=== PATIENT | female | born 1935 | race African-American/Black ===

== ENCOUNTER 2017-12-02 20:11 | Inpatient (IN) | payer MEDICARE ==
[~2017-12-02] VITALS: Ht 165.1 cm; Wt 62.5 kg
[2017-12-02] MEDS ORDERED: ALPRAZolam 0.5 MG TABLET PO ONE (21:00)
[2017-12-02] MEDS ORDERED: cloNIDine HCL 0.1 MG TABLET PO ONE (21:00)
--- NOTE | 2017-12-02 21:56 | RAD ---
CT scan of the head without contrast 12/02/2017 Clinical History: Altered mental status. Technique: Unenhanced, contiguous, 5 mm axial sections were obtained through the head. One or more of the following individualized dose reduction techniques were utilized for this study: 1. Automated exposure control. 2. Adjustment of the mA and/or kV according to patient size. 3. Use of iterative reconstruction technique. Findings: Comparison study is dated 03/08/2009. There is generalized parenchymal atrophy. Areas of decreased attenuation are seen within the periventricular and subcortical white matter of both cerebral hemispheres consistent with areas of small vessel ischemic disease. A low-attenuation area is seen involving the left parietal/occipital lobe which measures approximately 5.6 cm in greatest diameter. There is associated mass effect with effacement of the posterior horn of the left lateral ventricle. These findings are felt to reflect vasogenic edema related to an underlying mass (primary or secondary brain neoplasm) in this region. These findings are new since the previous examination. No midline shift is seen. No additional acute abnormality is noted. No extra-axial fluid collection is noted. No skull fracture is seen. IMPRESSION: Low-attenuation area with associated mass effect is seen involving the left parietal/occipital lobe. These findings efface the posterior horn of the left lateral ventricle and are felt to most likely reflect edema related to an underlying mass in this region. These findings could be further evaluated with MRI of the brain without and with contrast. Electronically signed by: Paul Caceres MD (12/02/2017 9:53 PM) [facility]
[2017-12-02 22:13] LABS: BILIRUBIN,URINE NEGATIVE (NEG); CLARITY,URINE CLEAR; COLOR,URINE YELLOW; NITRITE,URINE NEGATIVE (NEG); PH,URINE 5.5; PROTEIN,URINE NEGATIVE (NEG-TRACE); UROBILINOGEN,URINE 0.2 mg/dL (0.2 mg/dL)
[2017-12-02 22:24] LABS: BACTERIA,URINE 0 /HPF (0-FEW); RBC,URINE 0 /HPF (0-2); SQUAMOUS EPITHELIAL CELL,UR OCC /LPF; WBC,URINE 0 /HPF (0-4)
[2017-12-02 22:33] LABS: BASO # 0.1 x10^3/uL (0.0-0.2); BASO % 1 % (0-3); EOS % 0 % (0-3); HEMATOCRIT 22.8 % (36.0-47.0); HEMOGLOBIN 7.6 g/dL (12.0-15.5); LYMPH # 1.8 x10^3/uL (1.0-4.8); LYMPH % 16 % (24-48); MEAN CORPUSCULAR HEMOGLOBIN 30 pg (25-35); MEAN CORPUSCULAR HGB CONC 33 g/dL (31-37); MEAN CORPUSCULAR VOLUME 92 fL (79-100); MONO # 0.7 x10^3/uL (0.0-1.1); MONO % 6 % (0-9); NEUT # 8.5 x10^3uL (1.8-7.7); NEUT % 76 % (31-73); PLATELET COUNT 278 x10^3/uL (140-400); RED BLOOD COUNT 2.49 x10^6/uL (3.50-5.40); RED CELL DISTRIBUTION WIDTH 13.5 % (11.5-14.5); WHITE BLOOD COUNT 11.1 x10^3/uL (4.0-11.0)
[2017-12-02 22:37] LABS: PROTHROMBIN TIME PATIENT 14.7 SEC (11.7-14.0)
[2017-12-02 22:42] LABS: CALCIUM 9.1 mg/dL (8.5-10.1); CREATININE 3.6 mg/dL (0.6-1.0); GFR 14.6; POTASSIUM 4.3 mmol/L (3.5-5.1)
[2017-12-02 22:56] LABS: ALBUMIN 3.5 g/dL (3.4-5.0); TOTAL BILIRUBIN 0.3 mg/dL (0.2-1.0); TOTAL PROTEIN 7.1 g/dL (6.4-8.2)
[2017-12-02] MEDS ORDERED: IV NORMAL SALINE 1000ML BAG 1,000 ML IV ONE (23:00)
[2017-12-02] MEDS ORDERED: ONDANSETRON PF 4 MG/2 ML VIAL. IV PRN (23:15)
[2017-12-02] MEDS ORDERED: fentaNYL PF VIAL 100 MCG/2 ML VIAL IV PRN (23:15)
--- NOTE | 2017-12-02 23:49 | RAD ---
AP portable chest radiograph 12/02/2017 Clinical History: Altered mental status. An AP erect portable digital radiograph of the chest was obtained. Comparison study is dated 03/08/2009. The cardiac silhouette is mildly enlarged. The thoracic aorta is tortuous. Slight prominence of the pulmonary vasculature is seen suggesting mild CHF. No area of consolidation is noted. No pneumothorax or pleural effusion is seen. Degenerative changes are seen involving the thoracic spine. Impression: Findings suggesting mild CHF. Electronically signed by: Paul Caceres MD (12/02/2017 11:45 PM) [facility]
[2017-12-03] VITALS (21 sets, daily range): BP systolic 109–198; BP diastolic 61–113
--- NOTE | 2017-12-03 00:07 | EKG ---
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
--- NOTE | 2017-12-03 00:23 | PHYS DOC ---
Past Medical History Past Medical History: COPD, Hypertension, Other Additional Past Medical Histor: ALZHEIMER'S Past Surgical History: Hysterectomy Alcohol Use: None Drug Use: None Adult General Chief Complaint Chief Complaint: WEAKNESS/GENERALIZED HPI HPI Patient is a 82 year old female who presents with changes in behavior at home. The patient at baseline does have dementia but her family states that she has had increasingly bizarre behavior and altered mental status. They were worried that she might have a UTI. They did bring her to the emergency department and states that she has no significant past medical history aside from hypertension and dementia. She is eating and drinking normally and they deny nausea or vomiting. Review of Systems Review of Systems Constitutional: Denies fever or chills [] Eyes: Denies change in visual acuity, redness, or eye pain [] HENT: Denies nasal congestion or sore throat [] Respiratory: Denies cough or shortness of breath [] Cardiovascular: No additional information not addressed in HPI [] GI: Denies abdominal pain, nausea, vomiting, bloody stools or diarrhea [] : Denies dysuria or hematuria [] Musculoskeletal: Denies back pain or joint pain [] Integument: Denies rash or skin lesions [] Neurologic: See history of present illness Endocrine: Denies polyuria or polydipsia [] All other systems were reviewed and found to be within normal limits, except as documented in this note. Current Medications Current Medications Current Medications Medications (Trade) Dose Ordered Sig/[facility] Start Time Stop Time Status Last Admin Dose Admin Alprazolam (Xanax) 0.5 mg 1X ONCE 12/02/17 21:00 12/02/17 21:01 DC 12/02/17 21:07 0.5 MG Clonidine HCl (Catapres) 0.1 mg 1X ONCE 12/02/17 21:00 12/02/17 21:01 DC 12/02/17 21:07 0.1 MG Sodium Chloride 1,000 ml @ 1,000 mls/hr 1X ONCE 12/02/17 23:00 12/02/17 23:59 DC 12/02/17 23:31 1,000 MLS/HR Allergies Allergies Allergies Coded Allergies Type Severity Reaction Last Updated Verified No Known Drug Allergies 12/02/17 No Physical Exam Physical Exam Constitutional: Well developed, well nourished, no acute distress, non-toxic appearance. [] HENT: Normocephalic, atraumatic, bilateral external ears normal, oropharynx moist, no oral exudates, nose normal. [] Eyes: PERRLA, EOMI, conjunctiva normal, no discharge. [] Neck: Normal range of motion, no tenderness, supple, no stridor. [] Cardiovascular:Heart rate regular rhythm, 3+ systolic murmur auscultated Lungs & Thorax: Bilateral breath sounds clear to auscultation [] Abdomen: Bowel sounds normal, soft, no tenderness, no masses, no pulsatile masses. [] Skin: Warm, dry, no erythema, no rash. [] Back: No tenderness, no CVA tenderness. [] Extremities: No tenderness, no cyanosis, no clubbing, ROM intact, no edema. [] Neurologic: Alert, unable to examine due to condition of patient Psychologic: Affect normal, judgement normal, mood normal. [] Current Patient Data Vital Signs Vital Signs Date Time Temp Pulse Resp B/P (MAP) Pulse Ox O2 Delivery O2 Flow Rate FiO2 12/02/17 21:07 82 208/53 12/02/17 20:37 97.6 20 94 Room Air 97.6 Lab Values Laboratory Tests Test 12/02/17 20:49 12/02/17 21:55 12/02/17 22:15 Glucose (Fingerstick) 103 mg/dL (70-99) H Urine Collection Type Unknown Urine Color Yellow Urine Clarity Clear Urine pH 5.5 Urine Specific [place] 1.020 Urine Protein Negative mg/dL (NEG-TRACE) Urine Glucose (UA) Negative mg/dL (NEG) Urine Ketones (Stick) Negative mg/dL (NEG) Urine Blood Negative (NEG) Urine Nitrite Negative (NEG) Urine Bilirubin Negative (NEG) Urine Urobilinogen Dipstick 0.2 mg/dL (0.2 mg/dL) Urine Leukocyte Esterase Negative (NEG) Urine RBC 0 /HPF (0-2) Urine WBC 0 /HPF (0-4) Urine Squamous Epithelial Cells Occ /LPF Urine Bacteria 0 /HPF (0-FEW) Urine Mucus Slight /LPF White Blood Count 11.1 x10^3/uL (4.0-11.0) H Red Blood Count 2.49 x10^6/uL (3.50-5.40) L Hemoglobin 7.6 g/dL (12.0-15.5) L Hematocrit 22.8 % (36.0-47.0) L Mean Corpuscular Volume 92 fL (79-100) Mean Corpuscular Hemoglobin 30 pg (25-35) Mean Corpuscular Hemoglobin Concent 33 g/dL (31-37) Red Cell Distribution Width 13.5 % (11.5-14.5) Platelet Count 278 x10^3/uL (140-400) Neutrophils (%) (Auto) 76 % (31-73) H Lymphocytes (%) (Auto) 16 % (24-48) L Monocytes (%) (Auto) 6 % (0-9) Eosinophils (%) (Auto) 0 % (0-3) Basophils (%) (Auto) 1 % (0-3) Neutrophils # (Auto) 8.5 x10^3uL (1.8-7.7) H Lymphocytes # (Auto) 1.8 x10^3/uL (1.0-4.8) Monocytes # (Auto) 0.7 x10^3/uL (0.0-1.1) Eosinophils # (Auto) 0.0 x10^3/uL (0.0-0.7) Basophils # (Auto) 0.1 x10^3/uL (0.0-0.2) Prothrombin Time 14.7 SEC (11.7-14.0) H Prothrombin Time INR 1.2 (0.8-1.1) H PTT 32 SEC (24-38) Sodium Level 139 mmol/L (136-145) Potassium Level 4.3 mmol/L (3.5-5.1) Chloride Level 102 mmol/L (98-107) Carbon Dioxide Level 24 mmol/L (21-32) Anion Gap 13 (6-14) Blood Urea Nitrogen 64 mg/dL (7-20) H Creatinine 3.6 mg/dL (0.6-1.0) H Estimated GFR (Cockcroft-Gault) 14.6 BUN/Creatinine Ratio 18 (6-20) Glucose Level 97 mg/dL (70-99) Lactic Acid Level 0.6 mmol/L (0.4-2.0) Calcium Level 9.1 mg/dL (8.5-10.1) Total Bilirubin 0.3 mg/dL (0.2-1.0) Aspartate Amino Transferase (AST) 28 U/L (15-37) Alanine Aminotransferase (ALT) 20 U/L (14-59) Alkaline Phosphatase 65 U/L (46-116) Ammonia < 10 mcmol/L (11-34) L CK-Ngi-W-Type Natriuretic Peptide 1040 pg/mL (0-449) H Total Protein 7.1 g/dL (6.4-8.2) Albumin 3.5 g/dL (3.4-5.0) Albumin/Globulin Ratio 1.0 (1.0-1.7) Laboratory Tests 12/02/17 22:15 Laboratory Tests 12/02/17 22:15 EKG EKG [] Radiology/Procedures Radiology/Procedures []PATIENT: NESSA PADILLAACCOUNT: [id number]#: [id number] : 1935 LOCATION: [address] [place] [address] AGE: 82 SEX: F EXAM STATUS: ADM IN ORD. PHYSICIAN: AUGUSTA MACK APRN REASON: altered mental status PROCEDURE: CHEST AP ONLY AP portable chest radiograph 12/02/2017 Clinical History: Altered mental status. An AP erect portable digital radiograph of the chest was obtained. Comparison study is dated 03/08/2009. The cardiac silhouette is mildly enlarged. The thoracic aorta is tortuous. Slight prominence of the pulmonary vasculature is seen suggesting mild CHF. No area of consolidation is noted. No pneumothorax or pleural effusion is seen. Degenerative changes are seen involving the thoracic spine. Impression: Findings suggesting mild CHF. Electronically signed by: Neville Caceres MD (12/02/2017 11:45 PM) [facility] DICTATED and SIGNED BY: NEVILLE CACERES MD DATE: 12/02/17 2524 PATIENT: NESSA PADILLA ACCOUNT: [id number] : 1935 LOCATION: ER AGE: 82 SEX: F EXAM STATUS: REG ER ORD. PHYSICIAN: AUGUSTA MACK APRN REASON: altered mental status PROCEDURE: CT HEAD WO CONTRAST CT scan of the head without contrast 12/02/2017 Clinical History: Altered mental status. Technique: Unenhanced, contiguous, 5 mm axial sections were obtained through the head. One or more of the following individualized dose reduction techniques were utilized for this study: 1. Automated exposure control. 2. Adjustment of the mA and/or kV according to patient size. 3. Use of iterative reconstruction technique. Findings: Comparison study is dated 03/08/2009. There is generalized parenchymal atrophy. Areas of decreased attenuation are seen within the periventricular and subcortical white matter of both cerebral hemispheres consistent with areas of small vessel ischemic disease. A low-attenuation area is seen involving the left parietal/occipital lobe which measures approximately 5.6 cm in greatest diameter. There is associated mass effect with effacement of the posterior horn of the left lateral ventricle. These findings are felt to reflect vasogenic edema related to an underlying mass (primary or secondary brain neoplasm) in this region. These findings are new since the previous examination. No midline shift is seen. No additional acute abnormality is noted. No extra-axial fluid collection is noted. No skull fracture is seen. IMPRESSION: Low-attenuation area with associated mass effect is seen involving the left parietal/occipital lobe. These findings efface the posterior horn of the left lateral ventricle and are felt to most likely reflect edema related to an underlying mass in this region. These findings could be further evaluated with MRI of the brain without and with contrast. Electronically signed by: Neville Caceres MD (12/02/2017 9:53 PM) [facility] DICTATED and SIGNED BY: NEVILLE CACERES MD DATE: 12/02/172144 Course & Med Decision Making Course & Med Decision Making Pertinent Labs and Imaging studies reviewed. (See chart for details) []The patient has several concerning labs with an elevated creatinine and BNP. The patient also has concerns on her CT scan for a cranial mass. Dr. Amezquita was consulted in the care of this patient. The patient will be admitted to ICU and started on dexamethasone 4 mg every 6 hours. Cardiology and nephrology also had consults placed. The patient is being admitted to Dr. Elaine's service. Dragon Disclaimer Dragon Disclaimer This electronic medical record was generated, in whole or in part, using a voice recognition dictation system. Departure Departure Impression: Primary Impression: Renal failure Additional Impressions: Brain mass Anemia CHF (congestive heart failure) Disposition: ADMITTED INPATIENT Admitting Physician: Paulo Ramos Condition: GUARDED Referrals: MEME GARDINER MD (PCP) Problem Qualifiers AUGUSTA MACK STRAPPING MACHINE OPERATOR Dec 03, 2017 00:23
[2017-12-03] MEDS: DEXAMETHASONE SOD PHOS 4 MG/ML VIAL IV SCH ×4 (01:29→18:12)
[2017-12-03] MEDS: IV NORMAL SALINE 1000ML BAG 1,000 ML IV SCH ×2 (01:40→11:36)
[2017-12-03] MEDS ORDERED: QUET50TA5 PO (01:40)
[2017-12-03] MEDS ORDERED: LISI-130 PO (01:40)
[2017-12-03] MEDS ORDERED: MEMA10TA PO (01:40)
[2017-12-03] MEDS ORDERED: CLON0.1T PO (01:40)
[2017-12-03] MEDS ORDERED: MULT200T4 PO (01:40)
[2017-12-03] MEDS ORDERED: ASPI81TA50 PO (01:40)
[2017-12-03] MEDS ORDERED: ALPR0.5T6 PO (01:40)
[2017-12-03] MEDS ORDERED: DONE5TAB56 PO (01:40)
[2017-12-03] MEDS ORDERED: DOCU-109 PO (01:40)
[2017-12-03] MEDS ORDERED: ZOLP5TAB5 PO (01:40)
[2017-12-03] MEDS ORDERED: INFLUENZA VAX SCREEN BY RX. MC PRN (03:00)
[2017-12-03 05:57] LABS: BASO # 0.1 x10^3/uL (0.0-0.2); BASO % 1 % (0-3); EOS % 0 % (0-3); HEMATOCRIT 25.1 % (36.0-47.0); HEMOGLOBIN 8.5 g/dL (12.0-15.5); LYMPH # 1.6 x10^3/uL (1.0-4.8); LYMPH % 11 % (24-48); MEAN CORPUSCULAR HEMOGLOBIN 31 pg (25-35); MEAN CORPUSCULAR HGB CONC 34 g/dL (31-37); MEAN CORPUSCULAR VOLUME 92 fL (79-100); MONO # 0.2 x10^3/uL (0.0-1.1); MONO % 1 % (0-9); NEUT # 12.8 x10^3uL (1.8-7.7); NEUT % 87 % (31-73); PLATELET COUNT 325 x10^3/uL (140-400); RED BLOOD COUNT 2.74 x10^6/uL (3.50-5.40); RED CELL DISTRIBUTION WIDTH 13.7 % (11.5-14.5); WHITE BLOOD COUNT 14.7 x10^3/uL (4.0-11.0)
[2017-12-03 07:53] LABS: % BANDS 1 % (0-9); % LYMPHS 5 % (24-48); % MONOS 1 % (0-10); % SEGS 93 % (35-66); PLT ESTIMATE ADEQUATE (ADEQUATE)
[2017-12-03 08:41] LABS: MAGNESIUM 2.7 mg/dL (1.8-2.4)
[2017-12-03 08:44] LABS: CALCIUM 9.4 mg/dL (8.5-10.1); GFR 18.1; POTASSIUM 4.7 mmol/L (3.5-5.1)
[2017-12-03 08:47] LABS: CHOLESTEROL/HDL RATIO 2.8
[2017-12-03] MEDS ORDERED: traMADol 50 MG TABLET PO PRN (09:15)
[2017-12-03] MEDS ORDERED: DOCUSATE SODIUM 100 MG CAPSULE. PO PRN (09:15)
[2017-12-03] MEDS ORDERED: ONDANSETRON PF 4 MG/2 ML VIAL. IV PRN (09:15)
[2017-12-03] MEDS ORDERED: MORPHINE SULFATE 2 MG/ML VIAL. IV PRN (09:15)
[2017-12-03] MEDS ORDERED: ACETAMINOPHEN 325 MG TABLET. PO PRN (09:15)
[2017-12-03] MEDS ORDERED: cloNIDine HCL 0.1 MG TABLET PO SCH (10:00)
--- NOTE | 2017-12-03 10:01 | PDOC2 ---
CARDIAC CONSULT DATE OF CONSULT Date of Consult DATE: 12/03/17 TIME: 09:57 REASON FOR CONSULT Reason for Consult: CHF REFERRING PHYSICIAN Referring Physician: Daneint SOURCE Source: Caregiver, Chart review HISTORY OF PRESENT ILLNESS HISTORY OF PRESENT ILLNESS 82 year old female admitted through the ER with history of dementia and increasing mentation changes. Has been found to have left parietal /occipital mass. Cardiology consulted for NT-proBNP of 1040 with Cr of 3.6 and SBP of 208 POA. CXR suggestive of very mild CHF. Reason for Visit: CHF PAST MEDICAL HISTORY Cardiovascular: HTN Pulmonary: COPD CENTRAL NERVOUS SYSTEM: Dementia PAST SURGICAL HISTORY Past Surgical History: Hysterectomy FAMILY HISTORY Family History: Other (non-contributory) SOCIAL HISTORY Smoke: Quit ALCOHOL: other (quit) Drugs: None Lives: with Family CURRENT MEDICATIONS CURRENT MEDICATIONS Current Medications Medications (Trade) Dose Ordered Sig/Jake Route PRN Reason Start Time Stop Time Status Last Admin Dose Admin Alprazolam (Xanax) 0.5 mg 1X ONCE PO 12/02/17 21:00 12/02/17 21:01 DC 12/02/17 21:07 Clonidine HCl (Catapres) 0.1 mg 1X ONCE PO 12/02/17 21:00 12/02/17 21:01 DC 12/02/17 21:07 Sodium Chloride 1,000 ml @ 1,000 mls/hr 1X ONCE IV 12/02/17 23:00 12/02/17 23:59 DC 12/02/17 23:31 Sodium Chloride 1,000 ml @ 75 mls/hr [id number] IV 12/02/17 23:30 12/03/17 23:29 12/03/17 01:40 Dexamethasone Sodium Phosphate (Decadron) 4 mg Q6HRS IV 12/03/17 00:00 12/03/17 06:23 ALLERGIES ALLERGIES: Coded Allergies: No Known Drug Allergies (Unverified , 12/02/17) ROS Review of System unobtainable due to mentation changes and dementia PHYSICAL EXAM General: Cooperative, No acute distress HEENT: Atraumatic Lungs: Clear to auscultation Heart: Normal S1, Normal S2, Other (2-3/6 NAHUN LUSB) Abdomen: Soft Extremities: No edema Skin: No rashes Neuro: Normal speech Psych/Mental Status: Mood NL MUSCULOSKELETAL: Osteoarthritic changes both hands VITALS VITALS Vital Signs Date Time Temp Pulse Resp B/P (MAP) Pulse Ox O2 Delivery O2 Flow Rate FiO2 12/03/17 08:00 Room Air 12/03/17 06:00 86 14 138/91 (107) 100 12/03/17 01:30 97.6 97.6 LABS Lab: Laboratory Tests Test 12/02/17 20:49 12/02/17 21:55 12/02/17 22:15 12/03/17 05:35 Glucose (Fingerstick) 103 mg/dL (70-99) Urine Collection Type Unknown Urine Color Yellow Urine Clarity Clear Urine pH 5.5 Urine Specific [place] 1.020 Urine Protein Negative mg/dL (NEG-TRACE) Urine Glucose (UA) Negative mg/dL (NEG) Urine Ketones (Stick) Negative mg/dL (NEG) Urine Blood Negative (NEG) Urine Nitrite Negative (NEG) Urine Bilirubin Negative (NEG) Urine Urobilinogen Dipstick 0.2 mg/dL (0.2 mg/dL) Urine Leukocyte Esterase Negative (NEG) Urine RBC 0 /HPF (0-2) Urine WBC 0 /HPF (0-4) Urine Squamous Epithelial Cells Occ /LPF Urine Bacteria 0 /HPF (0-FEW) Urine Mucus Slight /LPF White Blood Count 11.1 x10^3/uL (4.0-11.0) 14.7 x10^3/uL (4.0-11.0) Red Blood Count 2.49 x10^6/uL (3.50-5.40) 2.74 x10^6/uL (3.50-5.40) Hemoglobin 7.6 g/dL (12.0-15.5) 8.5 g/dL (12.0-15.5) Hematocrit 22.8 % (36.0-47.0) 25.1 % (36.0-47.0) Mean Corpuscular Volume 92 fL (79-100) 92 fL (79-100) Mean Corpuscular Hemoglobin 30 pg (25-35) 31 pg (25-35) Mean Corpuscular Hemoglobin Concent 33 g/dL (31-37) 34 g/dL (31-37) Red Cell Distribution Width 13.5 % (11.5-14.5) 13.7 % (11.5-14.5) Platelet Count 278 x10^3/uL (140-400) 325 x10^3/uL (140-400) Neutrophils (%) (Auto) 76 % (31-73) 87 % (31-73) Lymphocytes (%) (Auto) 16 % (24-48) 11 % (24-48) Monocytes (%) (Auto) 6 % (0-9) 1 % (0-9) Eosinophils (%) (Auto) 0 % (0-3) 0 % (0-3) Basophils (%) (Auto) 1 % (0-3) 1 % (0-3) Neutrophils # (Auto) 8.5 x10^3uL (1.8-7.7) 12.8 x10^3uL (1.8-7.7) Lymphocytes # (Auto) 1.8 x10^3/uL (1.0-4.8) 1.6 x10^3/uL (1.0-4.8) Monocytes # (Auto) 0.7 x10^3/uL (0.0-1.1) 0.2 x10^3/uL (0.0-1.1) Eosinophils # (Auto) 0.0 x10^3/uL (0.0-0.7) 0.0 x10^3/uL (0.0-0.7) Basophils # (Auto) 0.1 x10^3/uL (0.0-0.2) 0.1 x10^3/uL (0.0-0.2) Prothrombin Time 14.7 SEC (11.7-14.0) Prothromb Time International Ratio 1.2 (0.8-1.1) Activated Partial Thromboplast Time 32 SEC (24-38) Sodium Level 139 mmol/L (136-145) Potassium Level 4.3 mmol/L (3.5-5.1) Chloride Level 102 mmol/L (98-107) Carbon Dioxide Level 24 mmol/L (21-32) Anion Gap 13 (6-14) Blood Urea Nitrogen 64 mg/dL (7-20) Creatinine 3.6 mg/dL (0.6-1.0) Estimated GFR (Cockcroft-Gault) 14.6 BUN/Creatinine Ratio 18 (6-20) Glucose Level 97 mg/dL (70-99) Lactic Acid Level 0.6 mmol/L (0.4-2.0) Calcium Level 9.1 mg/dL (8.5-10.1) Total Bilirubin 0.3 mg/dL (0.2-1.0) Aspartate Amino Transf (AST/SGOT) 28 U/L (15-37) Alanine Aminotransferase (ALT/SGPT) 20 U/L (14-59) Alkaline Phosphatase 65 U/L (46-116) Ammonia < 10 mcmol/L (11-34) PZ-Jpd-W-Type Natriuretic Peptide 1040 pg/mL (0-449) Total Protein 7.1 g/dL (6.4-8.2) Albumin 3.5 g/dL (3.4-5.0) Albumin/Globulin Ratio 1.0 (1.0-1.7) Segmented Neutrophils % 93 % (35-66) Band Neutrophils % 1 % (0-9) Lymphocytes % 5 % (24-48) Monocytes % 1 % (0-10) Platelet Estimate Adequate (ADEQUATE) Large Platelets Occ Test 12/03/17 08:00 Sodium Level 139 mmol/L (136-145) Potassium Level 4.7 mmol/L (3.5-5.1) Chloride Level 102 mmol/L (98-107) Carbon Dioxide Level 22 mmol/L (21-32) Anion Gap 15 (6-14) Blood Urea Nitrogen 54 mg/dL (7-20) Creatinine 3.0 mg/dL (0.6-1.0) Estimated GFR (Cockcroft-Gault) 18.1 Glucose Level 128 mg/dL (70-99) Calcium Level 9.4 mg/dL (8.5-10.1) Magnesium Level 2.7 mg/dL (1.8-2.4) Triglycerides Level 71 mg/dL (0-150) Cholesterol Level 231 mg/dL (0-200) LDL Cholesterol, Calculated 134 mg/dL (0-100) VLDL Cholesterol, Calculated 14 mg/dL (0-40) Non-HDL Cholesterol Calculated 148 mg/dL (0-129) HDL Cholesterol 83 mg/dL (40-60) Cholesterol/HDL Ratio 2.8 Thyroid Stimulating Hormone (TSH) 1.204 uIU/mL (0.358-3.74) IMAGES IMAGES CXR: Comparison study is dated 03/08/2009. The cardiac silhouette is mildly enlarged. The thoracic aorta is tortuous. Slight prominence of the pulmonary vasculature is seen suggesting mild CHF. No area of consolidation is noted. No pneumothorax or pleural effusion is seen. Degenerative changes are seen involving the thoracic spine. Impression: Findings suggesting mild CHF. EKG EKG SR; no acute changes ASSESSMENT/PLAN ASSESSMENT/PLAN 1. murmur --likely aortic --TTE pending for evaluation 2. CHF --BNP 1040 and not indicative of CHF in setting of Cr of 3.6; age adjusted requires value > 1800 --minimal CHF on CXR; would not aggressively diurese --supportive care for now 3. left parietal/occipital mass --NS eval pending 4. ANGIE --neph eval pending 5. dementia BETH OLIVEROS INSTRUCTIONAL TECHNOLOGIST Dec 03, 2017 10:01
[2017-12-03] MEDS: DONEPEZIL HCL 5 MG TABLET. PO SCH (10:06)
[2017-12-03] MEDS: DOCUSATE SODIUM 100 MG CAPSULE. PO SCH (10:06)
--- NOTE | 2017-12-03 11:15 | PDOC2 ---
CONSULT Date of Consult Date of Consult DATE: 12/03/17 TIME: 11:07 Reason for Consult Reason for Consult: ANGIE Referring Physician Referring Physician: KELLY Identification/Chief Complaint Chief Complaint CONFUSION Source Source: Chart review History of Present Illness Reason for Visit: THIS IS AN 82 YR OLD WITH DEMENTIA. APPARENTLY MORE CONFUSED THAN USUAL. FAMILY WAS WORRIED THAT SHE HAD AN UTI SHE WAS JUST HAD ONCE NOT LONG AGO. FINISHED ANTIBIOTICS BUT FAMILY UNABLE TO TELL ME WHAT IT WAS. NO NEPHROTOXINS NOTED. PER FAMILY PO INTAKE HAS BEEN POOR. NO CKD REPORTED BY FAMILY BUT CR IS 3.6 ON ADMIT. NO OTHER HX PER FAMILY. UA HER IS CLEAR OF ANY ACUTE UTI. CT HEAD POS FOR MASS EFFECT IN THE LEFT PARIETAL AND OCCIPITAL LOBE Past Medical History Cardiovascular: HTN Pulmonary: COPD CENTRAL NERVOUS SYSTEM: Dementia Hepatobiliary: No pertinent hx Psych: No pertinent hx Rheumatologic: No pertinent hx Infectious disease: No pertinent hx Renal/: No pertinent hx Endocrine: No pertinent hx Past Surgical History Past Surgical History: Hysterectomy Family History Family History: Other (non-contributory) Social History Quit ALCOHOL: other (quit) Drugs: None Lives: with Family Current Medications Current Medications Current Medications Alprazolam (Xanax) 0.5 mg 1X ONCE PO Last administered on 12/02/17at 21:07; Start 12/02/17 at 21:00; Stop 12/02/17 at 21:01; Status DC Clonidine HCl (Catapres) 0.1 mg 1X ONCE PO Last administered on 12/02/17at 21: 07; Start 12/02/17 at 21:00; Stop 12/02/17 at 21:01; Status DC Sodium Chloride 1,000 ml @ 1,000 mls/hr 1X ONCE IV Last administered on at 23:31; Start 12/02/17 at 23:00; Stop 12/02/17 at 23:59; Status DC Ondansetron HCl (Zofran) 4 mg PRN Q8HRS PRN IV NAUSEA/VOMITING 1ST CHOICE; Start 12/02/17 at 23:15; Stop 12/03/17 at 23:14 Fentanyl Citrate (Fentanyl 2ml Vial) 50 mcg PRN Q2HR PRN IV SEVERE PAIN; Start 12/02/17 at 23:15; Stop 12/03/17 at 23:14 Sodium Chloride 1,000 ml @ 75 mls/hr [id number] IV Last administered on at 01:40; Start 12/02/17 at 23:30; Stop 12/03/17 at 23:29 Dexamethasone Sodium Phosphate (Decadron) 4 mg Q6HRS IV Last administered on at 06:23; Start 12/03/17 at 00:00 Info (Do NOT chart on this placeholder) 1 each PRN DAILY PRN MC UNABLE TO RESPOND; Start 12/03/17 at 03:00 Alprazolam (Xanax) 0.5 mg PRN TID PRN PO ANXIETY / AGITATION; Start 12/03/17 at 09:15 Clonidine HCl (Catapres) 0.1 mg DAILY PO Last administered on 12/03/17at 10:06; Start 12/03/17 at 10:00 Docusate Sodium (Colace) 100 mg DAILY PO Last administered on 12/03/17at 10:06; Start 12/03/17 at 10:00 Donepezil HCl (Aricept) 5 mg DAILY PO Last administered on 12/03/17at 10:06; Start 12/03/17 at 10:00 Memantine (Namenda) 10 mg DAILY PO ; Start 12/03/17 at 11:30 Quetiapine Fumarate (SEROquel) 50 mg QHS PO ; Start 12/03/17 at 21:00 Acetaminophen (Tylenol) 650 mg PRN Q6HRS PRN PO FEVER; Start 12/03/17 at 09:15 Ondansetron HCl (Zofran) 4 mg PRN Q6HRS PRN IV NAUSEA/VOMITING; Start 12/03/17 at 09:15 Morphine Sulfate (Morphine Sulfate) 2 mg PRN Q2HR PRN IV MODERATE TO SEVERE PAIN; Start 12/03/17 at 09:15 Tramadol HCl (Ultram) 50 mg PRN Q6HRS PRN PO MILD TO MODERATE PAIN; Start 12/03 at 09:15 Docusate Sodium (Colace) 100 mg PRN DAILY PRN PO CONSTIPATION; Start 12/03/17 at 09:15 Famotidine (Pepcid) 20 mg QHS PO ; Start 12/03/17 at 21:00 Active Scripts Active Reported Colace (Docusate Sodium) 100 Mg Capsule 100 Mg PO Clonidine Hcl 0.1 Mg Tablet 0.1 Mg PO DAILY Namenda (Memantine Hcl) 10 Mg Tablet 10 Mg PO DAILY Aricept (Donepezil Hcl) 5 Mg Tablet 5 Mg PO HS Zolpidem Tartrate 5 Mg Tablet 5 Mg PO PRN QHS PRN Alprazolam 0.5 Mg Tablet 0.5 Mg PO TID PRN Lisinopril 40 Mg Tablet 40 Mg PO DAILY Aspir-Low (Aspirin) 81 Mg Tablet.dr 81 Mg PO Seroquel (Quetiapine Fumarate) 50 Mg Tablet 50 Mg PO HS One-A-Day Proactive 65 Plus Tb (Multivit,Calc,Mins/Folic Acid) 200 Mcg Tablet 200 Mcg PO Allergies Allergies: Coded Allergies: No Known Drug Allergies (Unverified , 12/02/17) ROS Review of System UNABLE TO OBTAIN FROM PT Physical Exam General: Alert, Cooperative, No acute distress, moderate distress HEENT: Atraumatic, PERRLA, Other (DRY MUCOSA) Lungs: Clear to auscultation Heart: Regular rate Abdomen: Normal bowel sounds, Soft, No tenderness Extremities: No clubbing, No cyanosis, No edema Skin: No breakdown Neuro: Other (CONFUSED BUT NO ASYMMETRY) Psych/Mental Status: Other (CONFUSED) MUSCULOSKELETAL: No deformity, No swelling Vitals VITALS Vital Signs Date Time Temp Pulse Resp B/P (MAP) Pulse Ox O2 Delivery O2 Flow Rate FiO2 12/03/17 10:06 82 190/80 12/03/17 10:00 21 100 Room Air 12/03/17 08:00 97.4 97.4 Labs Labs Laboratory Tests Test 12/02/17 20:49 12/02/17 21:55 12/02/17 22:15 12/03/17 05:35 Glucose (Fingerstick) 103 mg/dL (70-99) Urine Collection Type Unknown Urine Color Yellow Urine Clarity Clear Urine pH 5.5 Urine Specific Gary 1.020 Urine Protein Negative mg/dL (NEG-TRACE) Urine Glucose (UA) Negative mg/dL (NEG) Urine Ketones (Stick) Negative mg/dL (NEG) Urine Blood Negative (NEG) Urine Nitrite Negative (NEG) Urine Bilirubin Negative (NEG) Urine Urobilinogen Dipstick 0.2 mg/dL (0.2 mg/dL) Urine Leukocyte Esterase Negative (NEG) Urine RBC 0 /HPF (0-2) Urine WBC 0 /HPF (0-4) Urine Squamous Epithelial Cells Occ /LPF Urine Bacteria 0 /HPF (0-FEW) Urine Mucus Slight /LPF White Blood Count 11.1 x10^3/uL (4.0-11.0) 14.7 x10^3/uL (4.0-11.0) Red Blood Count 2.49 x10^6/uL (3.50-5.40) 2.74 x10^6/uL (3.50-5.40) Hemoglobin 7.6 g/dL (12.0-15.5) 8.5 g/dL (12.0-15.5) Hematocrit 22.8 % (36.0-47.0) 25.1 % (36.0-47.0) Mean Corpuscular Volume 92 fL (79-100) 92 fL (79-100) Mean Corpuscular Hemoglobin 30 pg (25-35) 31 pg (25-35) Mean Corpuscular Hemoglobin Concent 33 g/dL (31-37) 34 g/dL (31-37) Red Cell Distribution Width 13.5 % (11.5-14.5) 13.7 % (11.5-14.5) Platelet Count 278 x10^3/uL (140-400) 325 x10^3/uL (140-400) Neutrophils (%) (Auto) 76 % (31-73) 87 % (31-73) Lymphocytes (%) (Auto) 16 % (24-48) 11 % (24-48) Monocytes (%) (Auto) 6 % (0-9) 1 % (0-9) Eosinophils (%) (Auto) 0 % (0-3) 0 % (0-3) Basophils (%) (Auto) 1 % (0-3) 1 % (0-3) Neutrophils # (Auto) 8.5 x10^3uL (1.8-7.7) 12.8 x10^3uL (1.8-7.7) Lymphocytes # (Auto) 1.8 x10^3/uL (1.0-4.8) 1.6 x10^3/uL (1.0-4.8) Monocytes # (Auto) 0.7 x10^3/uL (0.0-1.1) 0.2 x10^3/uL (0.0-1.1) Eosinophils # (Auto) 0.0 x10^3/uL (0.0-0.7) 0.0 x10^3/uL (0.0-0.7) Basophils # (Auto) 0.1 x10^3/uL (0.0-0.2) 0.1 x10^3/uL (0.0-0.2) Prothrombin Time 14.7 SEC (11.7-14.0) Prothromb Time International Ratio 1.2 (0.8-1.1) Activated Partial Thromboplast Time 32 SEC (24-38) Sodium Level 139 mmol/L (136-145) Potassium Level 4.3 mmol/L (3.5-5.1) Chloride Level 102 mmol/L (98-107) Carbon Dioxide Level 24 mmol/L (21-32) Anion Gap 13 (6-14) Blood Urea Nitrogen 64 mg/dL (7-20) Creatinine 3.6 mg/dL (0.6-1.0) Estimated GFR (Cockcroft-Gault) 14.6 BUN/Creatinine Ratio 18 (6-20) Glucose Level 97 mg/dL (70-99) Lactic Acid Level 0.6 mmol/L (0.4-2.0) Calcium Level 9.1 mg/dL (8.5-10.1) Total Bilirubin 0.3 mg/dL (0.2-1.0) Aspartate Amino Transf (AST/SGOT) 28 U/L (15-37) Alanine Aminotransferase (ALT/SGPT) 20 U/L (14-59) Alkaline Phosphatase 65 U/L (46-116) Ammonia < 10 mcmol/L (11-34) BE-Wcu-A-Type Natriuretic Peptide 1040 pg/mL (0-449) Total Protein 7.1 g/dL (6.4-8.2) Albumin 3.5 g/dL (3.4-5.0) Albumin/Globulin Ratio 1.0 (1.0-1.7) Segmented Neutrophils % 93 % (35-66) Band Neutrophils % 1 % (0-9) Lymphocytes % 5 % (24-48) Monocytes % 1 % (0-10) Platelet Estimate Adequate (ADEQUATE) Large Platelets Occ Test 12/03/17 08:00 Sodium Level 139 mmol/L (136-145) Potassium Level 4.7 mmol/L (3.5-5.1) Chloride Level 102 mmol/L (98-107) Carbon Dioxide Level 22 mmol/L (21-32) Anion Gap 15 (6-14) Blood Urea Nitrogen 54 mg/dL (7-20) Creatinine 3.0 mg/dL (0.6-1.0) Estimated GFR (Cockcroft-Gault) 18.1 Glucose Level 128 mg/dL (70-99) Calcium Level 9.4 mg/dL (8.5-10.1) Magnesium Level 2.7 mg/dL (1.8-2.4) Triglycerides Level 71 mg/dL (0-150) Cholesterol Level 231 mg/dL (0-200) LDL Cholesterol, Calculated 134 mg/dL (0-100) VLDL Cholesterol, Calculated 14 mg/dL (0-40) Non-HDL Cholesterol Calculated 148 mg/dL (0-129) HDL Cholesterol 83 mg/dL (40-60) Cholesterol/HDL Ratio 2.8 Thyroid Stimulating Hormone (TSH) 1.204 uIU/mL (0.358-3.74) Laboratory Tests Test 12/02/17 20:49 12/02/17 21:55 12/02/17 22:15 12/03/17 05:35 Glucose (Fingerstick) 103 mg/dL (70-99) Urine Collection Type Unknown Urine Color Yellow Urine Clarity Clear Urine pH 5.5 Urine Specific Gary 1.020 Urine Protein Negative mg/dL (NEG-TRACE) Urine Glucose (UA) Negative mg/dL (NEG) Urine Ketones (Stick) Negative mg/dL (NEG) Urine Blood Negative (NEG) Urine Nitrite Negative (NEG) Urine Bilirubin Negative (NEG) Urine Urobilinogen Dipstick 0.2 mg/dL (0.2 mg/dL) Urine Leukocyte Esterase Negative (NEG) Urine RBC 0 /HPF (0-2) Urine WBC 0 /HPF (0-4) Urine Squamous Epithelial Cells Occ /LPF Urine Bacteria 0 /HPF (0-FEW) Urine Mucus Slight /LPF White Blood Count 11.1 x10^3/uL (4.0-11.0) 14.7 x10^3/uL (4.0-11.0) Red Blood Count 2.49 x10^6/uL (3.50-5.40) 2.74 x10^6/uL (3.50-5.40) Hemoglobin 7.6 g/dL (12.0-15.5) 8.5 g/dL (12.0-15.5) Hematocrit 22.8 % (36.0-47.0) 25.1 % (36.0-47.0) Mean Corpuscular Volume 92 fL (79-100) 92 fL (79-100) Mean Corpuscular Hemoglobin 30 pg (25-35) 31 pg (25-35) Mean Corpuscular Hemoglobin Concent 33 g/dL (31-37) 34 g/dL (31-37) Red Cell Distribution Width 13.5 % (11.5-14.5) 13.7 % (11.5-14.5) Platelet Count 278 x10^3/uL (140-400) 325 x10^3/uL (140-400) Neutrophils (%) (Auto) 76 % (31-73) 87 % (31-73) Lymphocytes (%) (Auto) 16 % (24-48) 11 % (24-48) Monocytes (%) (Auto) 6 % (0-9) 1 % (0-9) Eosinophils (%) (Auto) 0 % (0-3) 0 % (0-3) Basophils (%) (Auto) 1 % (0-3) 1 % (0-3) Neutrophils # (Auto) 8.5 x10^3uL (1.8-7.7) 12.8 x10^3uL (1.8-7.7) Lymphocytes # (Auto) 1.8 x10^3/uL (1.0-4.8) 1.6 x10^3/uL (1.0-4.8) Monocytes # (Auto) 0.7 x10^3/uL (0.0-1.1) 0.2 x10^3/uL (0.0-1.1) Eosinophils # (Auto) 0.0 x10^3/uL (0.0-0.7) 0.0 x10^3/uL (0.0-0.7) Basophils # (Auto) 0.1 x10^3/uL (0.0-0.2) 0.1 x10^3/uL (0.0-0.2) Prothrombin Time 14.7 SEC (11.7-14.0) Prothromb Time International Ratio 1.2 (0.8-1.1) Activated Partial Thromboplast Time 32 SEC (24-38) Sodium Level 139 mmol/L (136-145) Potassium Level 4.3 mmol/L (3.5-5.1) Chloride Level 102 mmol/L (98-107) Carbon Dioxide Level 24 mmol/L (21-32) Anion Gap 13 (6-14) Blood Urea Nitrogen 64 mg/dL (7-20) Creatinine 3.6 mg/dL (0.6-1.0) Estimated GFR (Cockcroft-Gault) 14.6 BUN/Creatinine Ratio 18 (6-20) Glucose Level 97 mg/dL (70-99) Lactic Acid Level 0.6 mmol/L (0.4-2.0) Calcium Level 9.1 mg/dL (8.5-10.1) Total Bilirubin 0.3 mg/dL (0.2-1.0) Aspartate Amino Transf (AST/SGOT) 28 U/L (15-37) Alanine Aminotransferase (ALT/SGPT) 20 U/L (14-59) Alkaline Phosphatase 65 U/L (46-116) Ammonia < 10 mcmol/L (11-34) BZ-Eqh-L-Type Natriuretic Peptide 1040 pg/mL (0-449) Total Protein 7.1 g/dL (6.4-8.2) Albumin 3.5 g/dL (3.4-5.0) Albumin/Globulin Ratio 1.0 (1.0-1.7) Segmented Neutrophils % 93 % (35-66) Band Neutrophils % 1 % (0-9) Lymphocytes % 5 % (24-48) Monocytes % 1 % (0-10) Platelet Estimate Adequate (ADEQUATE) Large Platelets Occ Test 12/03/17 08:00 Sodium Level 139 mmol/L (136-145) Potassium Level 4.7 mmol/L (3.5-5.1) Chloride Level 102 mmol/L (98-107) Carbon Dioxide Level 22 mmol/L (21-32) Anion Gap 15 (6-14) Blood Urea Nitrogen 54 mg/dL (7-20) Creatinine 3.0 mg/dL (0.6-1.0) Estimated GFR (Cockcroft-Gault) 18.1 Glucose Level 128 mg/dL (70-99) Calcium Level 9.4 mg/dL (8.5-10.1) Magnesium Level 2.7 mg/dL (1.8-2.4) Triglycerides Level 71 mg/dL (0-150) Cholesterol Level 231 mg/dL (0-200) LDL Cholesterol, Calculated 134 mg/dL (0-100) VLDL Cholesterol, Calculated 14 mg/dL (0-40) Non-HDL Cholesterol Calculated 148 mg/dL (0-129) HDL Cholesterol 83 mg/dL (40-60) Cholesterol/HDL Ratio 2.8 Thyroid Stimulating Hormone (TSH) 1.204 uIU/mL (0.358-3.74) Assessment/Plan Assessment/Plan IMP ENCEPHALOPATHY DEHYDRATION ANGIE-ATN-NO CKD PER FAMILY LEFT PARIETAL/OCCIPITAL LOBE MASS ANEMIA DEMENTIA LABILE HTN PLAN MRI BRAIN PENDING NEURO/NS EVAL HYDRATION HOLD HER LISINOPRIL ADD NORVASC AND CONTINUE CLONIDINE RENAL SONOGRAM AVOID HYPOTONIC SALINE REGINE FARRIS MD Dec 03, 2017 11:15
[2017-12-03] MEDS ORDERED: amLODIPine BESYLATE 5 MG TABLET PO SCH (11:30)
[2017-12-03] MEDS ORDERED: ALPRAZolam 0.25 MG TABLET PO ONE ×2 (11:30→13:30)
[2017-12-03] MEDS: MEMANTINE 10 MG TABLET. PO SCH (11:35)
--- NOTE | 2017-12-03 13:19 | RAD ---
MRI Brain without contrast History: History of dementia, altered mental status, abnormal CT Technique: Multiplanar, multisequential noncontrast MR imaging was performed of the brain. Contrast: None due to patient's renal function Comparison: CT exam the same day and MRI brain exam March 09, 2009 Findings: Corresponding with CT findings, there is large area of abnormal T2 and FLAIR hyperintense signal centered in the left temporal occipital lobes with associated sulcal effacement and mass effect. This is also associated with some variable internal restricted diffusion as well as mild patchy associated decreased signal on gradient echo sequence suggestive of a component of mild petechial hemorrhage. There is some mass effect upon the left atrium. There is mild ventriculomegaly although probably due to [id number] generalized supratentorial atrophy. There is other minimal T2 and FLAIR hyperintense signal abnormality of the supratentorial white matter bilaterally. There is very mild deviation of the septum pellucidum to the right. There is preservation of the major arterial intracranial flow voids at the skull base. 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 There is heterogeneous opacification of the left maxillary sinus There is mild left maxillary sinus mucosal thickening. Mastoid air cells are aerated. Impression: 1. Corresponding with CT findings, there is a large area of masslike signal abnormality of the left temporal occipital lobes. This is associated with some associated restricted diffusion although may be due to cytotoxic edema rather than recent subacute infarct given the degree of associated mass effect. Overall findings are more concerning for underlying mass. There is associated mild petechial hemorrhage. No contrast could be given due to patient's renal function. 2. There is generalized supratentorial atrophy. 3. There is heterogeneous opacification of the maxillary sinus. Electronically signed by: Neal South MD (12/03/2017 1:16 PM) [id number]
--- NOTE | 2017-12-03 14:13 | RAD ---
Renal ultrasound, 12/03/2017: HISTORY: Acute renal insufficiency The right kidney measures 9.4 cm while the left kidney measures 9.7 cm. No significant hydronephrosis is evident. No renal mass is seen. The bladder is collapsed and not adequately delineated. IMPRESSION: No significant renal abnormality is detected. Electronically signed by: Julio C Leigh MD (12/03/2017 2:10 PM) [facility]
--- NOTE | 2017-12-03 14:14 | PDOC1 ---
History and Physical Date of Admission Date of Admission 12/03/17 Identification/Chief Complaint Chief Complaint AMS Source Source: Caregiver, Chart review History of Present Illness History of Present Illness HPI HPI Patient is a 82 year old female who presents with changes in behavior at home x1 week. pt has severe dementia, lives at home with daughter. pt cannot tell me any history. as per her daughter in law, dr Ulices's , pt she has had increasingly bizarre behavior and altered mental status. They were worried that she might have a UTI. They did bring her to the emergency department and states that she has no significant past medical history aside from hypertension and dementia. She is eating and drinking normally and they deny nausea or vomiting. CT found a brain mass. Cr 3.6. Past Medical History Cardiovascular: HTN Pulmonary: COPD CENTRAL NERVOUS SYSTEM: Dementia Hepatobiliary: No pertinent hx Psych: No pertinent hx Rheumatologic: No pertinent hx Infectious disease: No pertinent hx Renal/: No pertinent hx Endocrine: No pertinent hx Past Surgical History Past Surgical History: Hysterectomy Family History Family History: Other (non-contributory) Social History Smoke: Quit ALCOHOL: other (quit) Drugs: None Current Medications Current Medications Current Medications Medications (Trade) Dose Ordered Sig/Jake Start Time Stop Time Status Last Admin Dose Admin Acetaminophen (Tylenol) 650 mg PRN Q6HRS PRN 12/03/17 09:15 Alprazolam (Xanax) 0.25 mg 1X ONCE 12/03/17 13:30 12/03/17 13:31 DC Amlodipine Besylate (Norvasc) 5 mg DAILY 12/03/17 11:30 12/03/17 11:35 5 MG Clonidine HCl (Catapres) 0.1 mg DAILY 12/03/17 10:00 12/03/17 10:06 0.1 MG Dexamethasone Sodium Phosphate (Decadron) 4 mg Q6HRS 12/03/17 00:00 12/03/17 11:35 4 MG Docusate Sodium (Colace) 100 mg PRN DAILY PRN 12/03/17 09:15 Donepezil HCl (Aricept) 5 mg DAILY 12/03/17 10:00 12/03/17 10:06 5 MG Famotidine (Pepcid) 20 mg QHS 12/03/17 21:00 Fentanyl Citrate (Fentanyl 2ml Vial) 50 mcg PRN Q2HR PRN 12/02/17 23:15 12/03/17 23:14 Influenza Virus Vaccine (Afluria Trivalent [id number] Syringe) 0.5 ml ONCE ONCE 12/03/17 13:45 12/03/17 13:46 DC Info (Do NOT chart on this placeholder) 1 each PRN DAILY PRN 12/03/17 03:00 12/03/17 13:32 DC Memantine (Namenda) 10 mg DAILY 12/03/17 11:30 12/03/17 11:35 10 MG Morphine Sulfate (Morphine Sulfate) 2 mg PRN Q2HR PRN 12/03/17 09:15 Ondansetron HCl (Zofran) 4 mg PRN Q6HRS PRN 12/03/17 09:15 Quetiapine Fumarate (SEROquel) 50 mg QHS 12/03/17 21:00 Sodium Chloride 1,000 ml @ 75 mls/hr [id number] 12/02/17 23:30 12/03/17 23:29 12/03/17 11:36 75 MLS/HR Tramadol HCl (Ultram) 50 mg PRN Q6HRS PRN 12/03/17 09:15 Allergies Allergies Allergies Coded Allergies Type Severity Reaction Last Updated Verified No Known Drug Allergies 12/02/17 No ROS Review of System CONSTITUTIONAL: No fever or chills EYES: No recent changes SKIN: No rash or itching CARDIOVASCULAR: No chest pain, syncope, palpitations, or edema RESPIRATORY: No SOB or cough GASTROINTESTINAL: No nausea, vomiting or abdominal pain NEUROLOGICAL: No headaches or weakness ENDOCRINE: No cold or heat intolerance GENITOURINARY: No urgency or frequency of urination MUSCULOSKELETAL: No back pain or joint pain LYMPHATICS: No enlarged lymph nodes PSYCHIATRIC: No anxiety or depression Physical Exam Physical Exam GEN.: No apparent distress. Alert and oriented x0, not answer questions, saying "yes", follow commands by squeezing my hands. HEENT: Head is normocephalic, atraumatic NECK: Supple. LUNGS: Clear to auscultation. HEART: RRR, S1, S2 present. Peripheral pulses intact ABDOMEN: Soft, nontender. Positive bowel sounds. EXTREMITIES: Without any cyanosis. NEUROLOGIC: Normal speech, normal tone PSYCHIATRIC: Normal affect, normal mood. SKIN: No ulcerations Vitals Vitals Vital Signs Date Time Temp Pulse Resp B/P (MAP) Pulse Ox O2 Delivery O2 Flow Rate FiO2 12/03/17 11:35 74 181/85 12/03/17 10:00 21 100 Room Air 12/03/17 08:00 97.4 97.4 Labs Labs Laboratory Tests Test 12/02/17 20:49 12/02/17 21:55 12/02/17 22:15 12/03/17 05:35 Glucose (Fingerstick) 103 mg/dL (70-99) Urine Collection Type Unknown Urine Color Yellow Urine Clarity Clear Urine pH 5.5 Urine Specific [place] 1.020 Urine Protein Negative mg/dL (NEG-TRACE) Urine Glucose (UA) Negative mg/dL (NEG) Urine Ketones (Stick) Negative mg/dL (NEG) Urine Blood Negative (NEG) Urine Nitrite Negative (NEG) Urine Bilirubin Negative (NEG) Urine Urobilinogen Dipstick 0.2 mg/dL (0.2 mg/dL) Urine Leukocyte Esterase Negative (NEG) Urine RBC 0 /HPF (0-2) Urine WBC 0 /HPF (0-4) Urine Squamous Epithelial Cells Occ /LPF Urine Bacteria 0 /HPF (0-FEW) Urine Mucus Slight /LPF White Blood Count 11.1 x10^3/uL (4.0-11.0) 14.7 x10^3/uL (4.0-11.0) Red Blood Count 2.49 x10^6/uL (3.50-5.40) 2.74 x10^6/uL (3.50-5.40) Hemoglobin 7.6 g/dL (12.0-15.5) 8.5 g/dL (12.0-15.5) Hematocrit 22.8 % (36.0-47.0) 25.1 % (36.0-47.0) Mean Corpuscular Volume 92 fL (79-100) 92 fL (79-100) Mean Corpuscular Hemoglobin 30 pg (25-35) 31 pg (25-35) Mean Corpuscular Hemoglobin Concent 33 g/dL (31-37) 34 g/dL (31-37) Red Cell Distribution Width 13.5 % (11.5-14.5) 13.7 % (11.5-14.5) Platelet Count 278 x10^3/uL (140-400) 325 x10^3/uL (140-400) Neutrophils (%) (Auto) 76 % (31-73) 87 % (31-73) Lymphocytes (%) (Auto) 16 % (24-48) 11 % (24-48) Monocytes (%) (Auto) 6 % (0-9) 1 % (0-9) Eosinophils (%) (Auto) 0 % (0-3) 0 % (0-3) Basophils (%) (Auto) 1 % (0-3) 1 % (0-3) Neutrophils # (Auto) 8.5 x10^3uL (1.8-7.7) 12.8 x10^3uL (1.8-7.7) Lymphocytes # (Auto) 1.8 x10^3/uL (1.0-4.8) 1.6 x10^3/uL (1.0-4.8) Monocytes # (Auto) 0.7 x10^3/uL (0.0-1.1) 0.2 x10^3/uL (0.0-1.1) Eosinophils # (Auto) 0.0 x10^3/uL (0.0-0.7) 0.0 x10^3/uL (0.0-0.7) Basophils # (Auto) 0.1 x10^3/uL (0.0-0.2) 0.1 x10^3/uL (0.0-0.2) Prothrombin Time 14.7 SEC (11.7-14.0) Prothromb Time International Ratio 1.2 (0.8-1.1) Activated Partial Thromboplast Time 32 SEC (24-38) Sodium Level 139 mmol/L (136-145) Potassium Level 4.3 mmol/L (3.5-5.1) Chloride Level 102 mmol/L (98-107) Carbon Dioxide Level 24 mmol/L (21-32) Anion Gap 13 (6-14) Blood Urea Nitrogen 64 mg/dL (7-20) Creatinine 3.6 mg/dL (0.6-1.0) Estimated GFR (Cockcroft-Gault) 14.6 BUN/Creatinine Ratio 18 (6-20) Glucose Level 97 mg/dL (70-99) Lactic Acid Level 0.6 mmol/L (0.4-2.0) Calcium Level 9.1 mg/dL (8.5-10.1) Total Bilirubin 0.3 mg/dL (0.2-1.0) Aspartate Amino Transf (AST/SGOT) 28 U/L (15-37) Alanine Aminotransferase (ALT/SGPT) 20 U/L (14-59) Alkaline Phosphatase 65 U/L (46-116) Ammonia < 10 mcmol/L (11-34) IG-Yee-Z-Type Natriuretic Peptide 1040 pg/mL (0-449) Total Protein 7.1 g/dL (6.4-8.2) Albumin 3.5 g/dL (3.4-5.0) Albumin/Globulin Ratio 1.0 (1.0-1.7) Segmented Neutrophils % 93 % (35-66) Band Neutrophils % 1 % (0-9) Lymphocytes % 5 % (24-48) Monocytes % 1 % (0-10) Platelet Estimate Adequate (ADEQUATE) Large Platelets Occ Test 12/03/17 08:00 Sodium Level 139 mmol/L (136-145) Potassium Level 4.7 mmol/L (3.5-5.1) Chloride Level 102 mmol/L (98-107) Carbon Dioxide Level 22 mmol/L (21-32) Anion Gap 15 (6-14) Blood Urea Nitrogen 54 mg/dL (7-20) Creatinine 3.0 mg/dL (0.6-1.0) Estimated GFR (Cockcroft-Gault) 18.1 Glucose Level 128 mg/dL (70-99) Calcium Level 9.4 mg/dL (8.5-10.1) Magnesium Level 2.7 mg/dL (1.8-2.4) Triglycerides Level 71 mg/dL (0-150) Cholesterol Level 231 mg/dL (0-200) LDL Cholesterol, Calculated 134 mg/dL (0-100) VLDL Cholesterol, Calculated 14 mg/dL (0-40) Non-HDL Cholesterol Calculated 148 mg/dL (0-129) HDL Cholesterol 83 mg/dL (40-60) Cholesterol/HDL Ratio 2.8 Thyroid Stimulating Hormone (TSH) 1.204 uIU/mL (0.358-3.74) Laboratory Tests Test 12/02/17 20:49 12/02/17 21:55 12/02/17 22:15 12/03/17 05:35 Glucose (Fingerstick) 103 mg/dL (70-99) Urine Collection Type Unknown Urine Color Yellow Urine Clarity Clear Urine pH 5.5 Urine Specific [place] 1.020 Urine Protein Negative mg/dL (NEG-TRACE) Urine Glucose (UA) Negative mg/dL (NEG) Urine Ketones (Stick) Negative mg/dL (NEG) Urine Blood Negative (NEG) Urine Nitrite Negative (NEG) Urine Bilirubin Negative (NEG) Urine Urobilinogen Dipstick 0.2 mg/dL (0.2 mg/dL) Urine Leukocyte Esterase Negative (NEG) Urine RBC 0 /HPF (0-2) Urine WBC 0 /HPF (0-4) Urine Squamous Epithelial Cells Occ /LPF Urine Bacteria 0 /HPF (0-FEW) Urine Mucus Slight /LPF White Blood Count 11.1 x10^3/uL (4.0-11.0) 14.7 x10^3/uL (4.0-11.0) Red Blood Count 2.49 x10^6/uL (3.50-5.40) 2.74 x10^6/uL (3.50-5.40) Hemoglobin 7.6 g/dL (12.0-15.5) 8.5 g/dL (12.0-15.5) Hematocrit 22.8 % (36.0-47.0) 25.1 % (36.0-47.0) Mean Corpuscular Volume 92 fL (79-100) 92 fL (79-100) Mean Corpuscular Hemoglobin 30 pg (25-35) 31 pg (25-35) Mean Corpuscular Hemoglobin Concent 33 g/dL (31-37) 34 g/dL (31-37) Red Cell Distribution Width 13.5 % (11.5-14.5) 13.7 % (11.5-14.5) Platelet Count 278 x10^3/uL (140-400) 325 x10^3/uL (140-400) Neutrophils (%) (Auto) 76 % (31-73) 87 % (31-73) Lymphocytes (%) (Auto) 16 % (24-48) 11 % (24-48) Monocytes (%) (Auto) 6 % (0-9) 1 % (0-9) Eosinophils (%) (Auto) 0 % (0-3) 0 % (0-3) Basophils (%) (Auto) 1 % (0-3) 1 % (0-3) Neutrophils # (Auto) 8.5 x10^3uL (1.8-7.7) 12.8 x10^3uL (1.8-7.7) Lymphocytes # (Auto) 1.8 x10^3/uL (1.0-4.8) 1.6 x10^3/uL (1.0-4.8) Monocytes # (Auto) 0.7 x10^3/uL (0.0-1.1) 0.2 x10^3/uL (0.0-1.1) Eosinophils # (Auto) 0.0 x10^3/uL (0.0-0.7) 0.0 x10^3/uL (0.0-0.7) Basophils # (Auto) 0.1 x10^3/uL (0.0-0.2) 0.1 x10^3/uL (0.0-0.2) Prothrombin Time 14.7 SEC (11.7-14.0) Prothromb Time International Ratio 1.2 (0.8-1.1) Activated Partial Thromboplast Time 32 SEC (24-38) Sodium Level 139 mmol/L (136-145) Potassium Level 4.3 mmol/L (3.5-5.1) Chloride Level 102 mmol/L (98-107) Carbon Dioxide Level 24 mmol/L (21-32) Anion Gap 13 (6-14) Blood Urea Nitrogen 64 mg/dL (7-20) Creatinine 3.6 mg/dL (0.6-1.0) Estimated GFR (Cockcroft-Gault) 14.6 BUN/Creatinine Ratio 18 (6-20) Glucose Level 97 mg/dL (70-99) Lactic Acid Level 0.6 mmol/L (0.4-2.0) Calcium Level 9.1 mg/dL (8.5-10.1) Total Bilirubin 0.3 mg/dL (0.2-1.0) Aspartate Amino Transf (AST/SGOT) 28 U/L (15-37) Alanine Aminotransferase (ALT/SGPT) 20 U/L (14-59) Alkaline Phosphatase 65 U/L (46-116) Ammonia < 10 mcmol/L (11-34) NV-Rcl-F-Type Natriuretic Peptide 1040 pg/mL (0-449) Total Protein 7.1 g/dL (6.4-8.2) Albumin 3.5 g/dL (3.4-5.0) Albumin/Globulin Ratio 1.0 (1.0-1.7) Segmented Neutrophils % 93 % (35-66) Band Neutrophils % 1 % (0-9) Lymphocytes % 5 % (24-48) Monocytes % 1 % (0-10) Platelet Estimate Adequate (ADEQUATE) Large Platelets Occ Test 12/03/17 08:00 Sodium Level 139 mmol/L (136-145) Potassium Level 4.7 mmol/L (3.5-5.1) Chloride Level 102 mmol/L (98-107) Carbon Dioxide Level 22 mmol/L (21-32) Anion Gap 15 (6-14) Blood Urea Nitrogen 54 mg/dL (7-20) Creatinine 3.0 mg/dL (0.6-1.0) Estimated GFR (Cockcroft-Gault) 18.1 Glucose Level 128 mg/dL (70-99) Calcium Level 9.4 mg/dL (8.5-10.1) Magnesium Level 2.7 mg/dL (1.8-2.4) Triglycerides Level 71 mg/dL (0-150) Cholesterol Level 231 mg/dL (0-200) LDL Cholesterol, Calculated 134 mg/dL (0-100) VLDL Cholesterol, Calculated 14 mg/dL (0-40) Non-HDL Cholesterol Calculated 148 mg/dL (0-129) HDL Cholesterol 83 mg/dL (40-60) Cholesterol/HDL Ratio 2.8 Thyroid Stimulating Hormone (TSH) 1.204 uIU/mL (0.358-3.74) VTE Prophylaxis Ordered VTE Prophylaxis Devices: Yes VTE Pharmacological Prophylaxi: No Assessment/Plan Assessment/Plan AMS more confusion 2/2 brain mass likely baseline severe dementia ANGIE, vasomotor htn urgency stable copd plan: talked to ICU nurse and daughter in law at bedside MRI brain wo and w contrast but as per radiologist cannot do contrast neurosx, renal, card consult hold lisinopril, cont ivf add amlodipine as per renal increase clonidine to 0.1mg bid for now, labetolol prn labs tmr decadron , gi ppx dvt ppx tmr PAT consult for code status JUAN CROWELL MD Dec 03, 2017 14:14
--- NOTE | 2017-12-03 14:33 | CARD ---
MR#: [id number] Date of Study: 12/03/2017 Ordering Physician: BETH OLIVEROS, Referring Physician: SHANTA MENDOZA Tech: Vannessa Boudreaux RDCS APPROVED REPORT EXAM: Two-dimensional and M-mode echocardiogram with Doppler and color Doppler. Other Information Quality : Technically Limited Technically limited study due to patient resistent to getting the echo INDICATION Congestive Heart Failure 2D DIMENSIONS RVDd2.6 (2.9-3.5cm)Left Atrium(2D)3.3 (1.6-4.0cm) IVSd1.5 (0.7-1.1cm)Aortic Root(2D)2.5 (2.0-3.7cm) LVDd3.2 (3.9-5.9cm)LVOT Diameter2.0 (1.8-2.4cm) PWd1.5 (0.7-1.1cm)LVDs2.1 (2.5-4.0cm) FS (%) 32.9 %SV25.7 ml LVEF(%)62.7 (>50%) Aortic Valve AoV Peak Jonathan.169.9cm/sAoV VTI30.4cm AO Peak GR.11.5mmHgLVOT VTI 24.73cm AO Mean GR.7mmHgAVA (VTI)2.60cm2 Mitral Valve MV E Vgumkbpo51.3cm/sMV DECEL [id number] MV A Grzpvkbp502.8cm/sE/A Ratio0.7 TDI Lateral E' P. V3.35cm/sMedial E' P. V4.63cm/s E/Lateral E'22.5E/Medial E'16.3 Pulmonary Vein S1 Othoexhc28.7cm/sS2 Uqnqoide83.51cm/s D2 Wtzahxnw90.5cm/s LEFT VENTRICLE The left ventricle is normal size. There is mild to moderate concentric left ventricular hypertrophy. The left ventricular systolic function is normal. The Ejection Fraction is 60-65%. There is normal L V segmental wall motion. Transmitral Doppler flow pattern is Grade I-abnormal relaxation pattern. RIGHT VENTRICLE The right ventricle is normal size. The right ventricular systolic function is normal. ATRIA The left atrium size is normal. The right atrium size is normal. The interatrial septum is intact wit h no evidence for an atrial septal defect or patent foramen ovale as noted on 2-D or Doppler imaging. AORTIC VALVE The aortic valve is not well visualized. Doppler and Color Flow revealed no significant aortic regurg itation. There is no significant aortic valvular stenosis. MITRAL VALVE The mitral valve is calcified but opens well. There is no evidence of mitral valve prolapse. There is no mitral valve stenosis. Doppler and Color-flow revealed mild mitral regurgitation. TRICUSPID VALVE The tricuspid valve is normal in structure and function. Doppler and Color Flow revealed no tricuspid valve regurgitation noted. There is no tricuspid valve stenosis. PULMONIC VALVE The pulmonic valve is not well visualized. Doppler and Color Flow revealed no pulmonic valvular regur gitation. There is no pulmonic valvular stenosis. GREAT VESSELS The aortic root is normal in size. The ascending aorta is not well seen. The IVC was not visualized. PERICARDIAL EFFUSION There is no evidence of significant pericardial effusion. Critical Notification Critical Value: No <Conclusion> The left ventricular systolic function is normal. The Ejection Fraction is 60-65%. There is normal LV segmental wall motion. Transmitral Doppler flow pattern is Grade I-abnormal relaxation pattern. Doppler and Color-flow revealed mild mitral regurgitation. There is no evidence of significant pericardial effusion. Signed by : Mario Williamson, Electronically Approved : 12/03/2017 14:32:18
--- NOTE | 2017-12-03 17:40 | PDOC2 ---
PALLIATIVE CARE Palliative Care Note Palliative Care Consult requested by Dr. Robles to address code status. Medical Assessment per medical record MRI of Brain; Mass affect with edema. No surgery planned. Mild CHF, Dementia Spoke with Gin BEAN. She is aware of the medical condition. Code Status: Full Code. Discussed code status with daughter. She will discuss with other members of the family. Will likely change to DNR/DNI. Understands that resuscitation will not likely benefit patient. Discussed Discharge plan. She will discuss Hospice with her family and call name of Hospice Agency to staff. DME: Hospital Bed, Recliner chair, W/C, BSC, shower chair. Gely # [phone] Wilfredo: [phone] or [phone] JODI HERNANDES Dec 03, 2017 17:40
--- NOTE | 2017-12-03 22:28 | CONS ---
DATE OF CONSULTATION: 12/03/2017 REASON FOR CONSULTATION: Intracerebral lesions. HISTORY OF PRESENT ILLNESS: The patient is a pleasant 82-year-old woman who developed over the last week, abnormal behavior, which was increasingly bizarre and she was brought to the Emergency Room for further evaluation. According to the daughter, she has had some problems for the last few months. She developed some difficulties with her vision and had her eyes evaluated 2-3 months ago. That evaluation was negative. The daughter said that the patient has gradually developed increasingly abnormal behavior, culminating in bizarre behavior over the last week. There have been no problems with pain. She did fall a few days ago. She has a history of severe dementia. PAST MEDICAL HISTORY: Includes hypertension, COPD, dementia. PAST SURGICAL HISTORY: Hysterectomy. PERSONAL HISTORY: She quit smoking. She does not drink alcohol. She lives with her daughter. ALLERGIES: No known allergies to drugs. MEDICATIONS: Can be reviewed on the MRAD and are noncontributory. REVIEW OF SYSTEMS: A 12-point review of systems was performed. That was negative. PHYSICAL EXAMINATION: GENERAL: She is supine in bed, head of bed is elevated about 10 degrees. NEUROLOGIC: She is alert. She is not oriented. She will not answer questions. She will not follow commands and appears confused. She did deny having any pain. HEENT: Normocephalic, atraumatic. NECK: Supple. Respirations symmetric. HEART: Regular rate and rhythm. There was full range of motion of upper and lower extremities bilaterally. When she did speak, her speech was clear. She moved upper and lower extremities equally bilaterally. She responded to light touch in the upper and lower extremities. I reviewed a CT scan of the head as well as an MRI of the brain. 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 Unfortunately, the patient because of poor renal function was unable to have contrast but there did appear to be evidence of mild petechial hemorrhage. There was mild deviation of the septum pellucidum to the right. There was preservation of major arterial intracranial blood flow voids in the skull base. 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 That being said, there is a chance that this could represent an infarction in this location. In speaking with the daughter, treatment choices include biopsy with confirmation of diagnosis and potentially radiation treatment versus palliative care based on the underlying dementia and the quality of life that preceded this deterioration. At the present, the plan will be for palliative care. I discussed all of this with the daughter. She can be transferred from the Intensive Care Unit. I appreciate you asking us to see her. JOHANNA WISE MD DR: RAJESH/alonso JOB#: [id number] / [id number]
[2017-12-03] MEDS: FAMOTIDINE 20 MG TABLET. PO SCH (22:40)
[2017-12-03] MEDS: cloNIDine HCL 0.1 MG TABLET PO SCH (22:41)
[2017-12-03] MEDS: QUEtiapine 25 MG TABLET. PO SCH (22:41)
[2017-12-04] VITALS (7 sets, daily range): BP systolic 127–205; BP diastolic 71–88
[2017-12-04] MEDS ORDERED: diphenhydrAMINE HCL 25 MG CAPSULE PO ONE
[2017-12-04] MEDS: DEXAMETHASONE SOD PHOS 4 MG/ML VIAL IV SCH ×4 (00:22→17:33)
[2017-12-04] MEDS: LABETALOL 20 MG/4 ML DISP.SYRIN. IVP PRN ×3 (00:23→19:37)
[2017-12-04] MEDS: ALPRAZolam 0.5 MG TABLET PO PRN ×2 (00:23→17:33)
[2017-12-04 04:32] LABS: BASO % 0 % (0-3); EOS % 0 % (0-3); HEMOGLOBIN 8.2 g/dL (12.0-15.5); LYMPH # 0.6 x10^3/uL (1.0-4.8); LYMPH % 5 % (24-48); MEAN CORPUSCULAR HEMOGLOBIN 31 pg (25-35); MEAN CORPUSCULAR HGB CONC 34 g/dL (31-37); MEAN CORPUSCULAR VOLUME 92 fL (79-100); MONO # 0.4 x10^3/uL (0.0-1.1); MONO % 3 % (0-9); NEUT # 11.6 x10^3uL (1.8-7.7); NEUT % 92 % (31-73); PLATELET COUNT 311 x10^3/uL (140-400); RED BLOOD COUNT 2.61 x10^6/uL (3.50-5.40); RED CELL DISTRIBUTION WIDTH 13.6 % (11.5-14.5); WHITE BLOOD COUNT 12.6 x10^3/uL (4.0-11.0)
[2017-12-04 05:11] LABS: CALCIUM 9.2 mg/dL (8.5-10.1); CREATININE 2.3 mg/dL (0.6-1.0); GFR 24.6; POTASSIUM 5.1 mmol/L (3.5-5.1)
[2017-12-04] MEDS: DOCUSATE SODIUM 100 MG CAPSULE. PO SCH (09:00)
[2017-12-04] MEDS: MEMANTINE 10 MG TABLET. PO SCH (09:11)
[2017-12-04] MEDS: DONEPEZIL HCL 5 MG TABLET. PO SCH (09:12)
[2017-12-04] MEDS: cloNIDine HCL 0.1 MG TABLET PO SCH (09:12)
[2017-12-04] MEDS: amLODIPine BESYLATE 5 MG TABLET PO SCH (09:13)
--- NOTE | 2017-12-04 10:27 | PDOC ---
PROGRESS NOTES Chief Complaint Chief Complaint Patient is a 82 year old female who presents with changes in behavior at home x1 week. pt has severe dementia, lives at home with daughter. as per her daughter in law, dr Ulices's , pt she has had increasingly bizarre behavior and altered mental status. They were worried that she might have a UTI. They did bring her to the emergency department and states that she has no significant past medical history aside from hypertension and dementia. She is eating and drinking normally and they deny nausea or vomiting. CT found a brain mass. Cr 3.6. ANGIE HOME WITH HOSPICE TOMORROW PER DR URIARTE History of Present Illness History of Present Illness Assessment/Plan Assessment/Plan AMS more confusion 2/2 brain mass likely baseline severe dementia ANGIE, vasomotor htn urgency stable copd plan: talked nurse MRI brain wo and w contrast but as per radiologist cannot do contrast neurosx REC PALLIATIVE CARE , renal, card consult hold lisinopril, cont ivf amlodipine as per renal increase clonidine to 0.1mg bid for now, labetolol prn decadron , gi ppx dvt ppx tmr PAT consult for code status Vitals Vitals Vital Signs Date Time Temp Pulse Resp B/P (MAP) Pulse Ox O2 Delivery O2 Flow Rate FiO2 12/04/17 09:13 67 196/77 12/04/17 03:30 98.6 14 97 Room Air 98.6 Physical Exam General: Alert, Cooperative, No acute distress, moderate distress Heart: Regular rate, Normal S1, Normal S2 Lungs: Clear Abdomen: Normal bowel sounds, Soft, No tenderness Extremities: No clubbing, No cyanosis, No edema Skin: No breakdown, No significant lesion Labs LABS Laboratory Tests Test 12/04/17 03:40 White Blood Count 12.6 x10^3/uL (4.0-11.0) Red Blood Count 2.61 x10^6/uL (3.50-5.40) Hemoglobin 8.2 g/dL (12.0-15.5) Hematocrit 24.0 % (36.0-47.0) Mean Corpuscular Volume 92 fL (79-100) Mean Corpuscular Hemoglobin 31 pg (25-35) Mean Corpuscular Hemoglobin Concent 34 g/dL (31-37) Red Cell Distribution Width 13.6 % (11.5-14.5) Platelet Count 311 x10^3/uL (140-400) Neutrophils (%) (Auto) 92 % (31-73) Lymphocytes (%) (Auto) 5 % (24-48) Monocytes (%) (Auto) 3 % (0-9) Eosinophils (%) (Auto) 0 % (0-3) Basophils (%) (Auto) 0 % (0-3) Neutrophils # (Auto) 11.6 x10^3uL (1.8-7.7) Lymphocytes # (Auto) 0.6 x10^3/uL (1.0-4.8) Monocytes # (Auto) 0.4 x10^3/uL (0.0-1.1) Eosinophils # (Auto) 0.0 x10^3/uL (0.0-0.7) Basophils # (Auto) 0.0 x10^3/uL (0.0-0.2) Sodium Level 140 mmol/L (136-145) Potassium Level 5.1 mmol/L (3.5-5.1) Chloride Level 106 mmol/L (98-107) Carbon Dioxide Level 22 mmol/L (21-32) Anion Gap 12 (6-14) Blood Urea Nitrogen 45 mg/dL (7-20) Creatinine 2.3 mg/dL (0.6-1.0) Estimated GFR (Cockcroft-Gault) 24.6 Glucose Level 162 mg/dL (70-99) Calcium Level 9.2 mg/dL (8.5-10.1) Comment Review of Relevant I have reviewed the following items keegan (where applicable) has been applied. Labs Laboratory Tests Test 12/02/17 20:49 12/02/17 21:55 12/02/17 22:15 12/03/17 01:30 Glucose (Fingerstick) 103 mg/dL (70-99) Urine Collection Type Unknown Urine Color Yellow Urine Clarity Clear Urine pH 5.5 Urine Specific [place] 1.020 Urine Protein Negative mg/dL (NEG-TRACE) Urine Glucose (UA) Negative mg/dL (NEG) Urine Ketones (Stick) Negative mg/dL (NEG) Urine Blood Negative (NEG) Urine Nitrite Negative (NEG) Urine Bilirubin Negative (NEG) Urine Urobilinogen Dipstick 0.2 mg/dL (0.2 mg/dL) Urine Leukocyte Esterase Negative (NEG) Urine RBC 0 /HPF (0-2) Urine WBC 0 /HPF (0-4) Urine Squamous Epithelial Cells Occ /LPF Urine Bacteria 0 /HPF (0-FEW) Urine Mucus Slight /LPF White Blood Count 11.1 x10^3/uL (4.0-11.0) Red Blood Count 2.49 x10^6/uL (3.50-5.40) Hemoglobin 7.6 g/dL (12.0-15.5) Hematocrit 22.8 % (36.0-47.0) Mean Corpuscular Volume 92 fL (79-100) Mean Corpuscular Hemoglobin 30 pg (25-35) Mean Corpuscular Hemoglobin Concent 33 g/dL (31-37) Red Cell Distribution Width 13.5 % (11.5-14.5) Platelet Count 278 x10^3/uL (140-400) Neutrophils (%) (Auto) 76 % (31-73) Lymphocytes (%) (Auto) 16 % (24-48) Monocytes (%) (Auto) 6 % (0-9) Eosinophils (%) (Auto) 0 % (0-3) Basophils (%) (Auto) 1 % (0-3) Neutrophils # (Auto) 8.5 x10^3uL (1.8-7.7) Lymphocytes # (Auto) 1.8 x10^3/uL (1.0-4.8) Monocytes # (Auto) 0.7 x10^3/uL (0.0-1.1) Eosinophils # (Auto) 0.0 x10^3/uL (0.0-0.7) Basophils # (Auto) 0.1 x10^3/uL (0.0-0.2) Prothrombin Time 14.7 SEC (11.7-14.0) Prothromb Time International Ratio 1.2 (0.8-1.1) Activated Partial Thromboplast Time 32 SEC (24-38) Sodium Level 139 mmol/L (136-145) Potassium Level 4.3 mmol/L (3.5-5.1) Chloride Level 102 mmol/L (98-107) Carbon Dioxide Level 24 mmol/L (21-32) Anion Gap 13 (6-14) Blood Urea Nitrogen 64 mg/dL (7-20) Creatinine 3.6 mg/dL (0.6-1.0) Estimated GFR (Cockcroft-Gault) 14.6 BUN/Creatinine Ratio 18 (6-20) Glucose Level 97 mg/dL (70-99) Lactic Acid Level 0.6 mmol/L (0.4-2.0) Calcium Level 9.1 mg/dL (8.5-10.1) Total Bilirubin 0.3 mg/dL (0.2-1.0) Aspartate Amino Transf (AST/SGOT) 28 U/L (15-37) Alanine Aminotransferase (ALT/SGPT) 20 U/L (14-59) Alkaline Phosphatase 65 U/L (46-116) Ammonia < 10 mcmol/L (11-34) [id number]-I-Type Natriuretic Peptide 1040 pg/mL (0-449) Total Protein 7.1 g/dL (6.4-8.2) Albumin 3.5 g/dL (3.4-5.0) Albumin/Globulin Ratio 1.0 (1.0-1.7) Nasal Screen MRSA (PCR) Negative (Negative) Test 12/03/17 05:35 12/03/17 08:00 12/04/17 03:40 White Blood Count 14.7 x10^3/uL (4.0-11.0) 12.6 x10^3/uL (4.0-11.0) Red Blood Count 2.74 x10^6/uL (3.50-5.40) 2.61 x10^6/uL (3.50-5.40) Hemoglobin 8.5 g/dL (12.0-15.5) 8.2 g/dL (12.0-15.5) Hematocrit 25.1 % (36.0-47.0) 24.0 % (36.0-47.0) Mean Corpuscular Volume 92 fL (79-100) 92 fL (79-100) Mean Corpuscular Hemoglobin 31 pg (25-35) 31 pg (25-35) Mean Corpuscular Hemoglobin Concent 34 g/dL (31-37) 34 g/dL (31-37) Red Cell Distribution Width 13.7 % (11.5-14.5) 13.6 % (11.5-14.5) Platelet Count 325 x10^3/uL (140-400) 311 x10^3/uL (140-400) Neutrophils (%) (Auto) 87 % (31-73) 92 % (31-73) Lymphocytes (%) (Auto) 11 % (24-48) 5 % (24-48) Monocytes (%) (Auto) 1 % (0-9) 3 % (0-9) Eosinophils (%) (Auto) 0 % (0-3) 0 % (0-3) Basophils (%) (Auto) 1 % (0-3) 0 % (0-3) Neutrophils # (Auto) 12.8 x10^3uL (1.8-7.7) 11.6 x10^3uL (1.8-7.7) Lymphocytes # (Auto) 1.6 x10^3/uL (1.0-4.8) 0.6 x10^3/uL (1.0-4.8) Monocytes # (Auto) 0.2 x10^3/uL (0.0-1.1) 0.4 x10^3/uL (0.0-1.1) Eosinophils # (Auto) 0.0 x10^3/uL (0.0-0.7) 0.0 x10^3/uL (0.0-0.7) Basophils # (Auto) 0.1 x10^3/uL (0.0-0.2) 0.0 x10^3/uL (0.0-0.2) Segmented Neutrophils % 93 % (35-66) Band Neutrophils % 1 % (0-9) Lymphocytes % 5 % (24-48) Monocytes % 1 % (0-10) Platelet Estimate Adequate (ADEQUATE) Large Platelets Occ Sodium Level 139 mmol/L (136-145) 140 mmol/L (136-145) Potassium Level 4.7 mmol/L (3.5-5.1) 5.1 mmol/L (3.5-5.1) Chloride Level 102 mmol/L (98-107) 106 mmol/L (98-107) Carbon Dioxide Level 22 mmol/L (21-32) 22 mmol/L (21-32) Anion Gap 15 (6-14) 12 (6-14) Blood Urea Nitrogen 54 mg/dL (7-20) 45 mg/dL (7-20) Creatinine 3.0 mg/dL (0.6-1.0) 2.3 mg/dL (0.6-1.0) Estimated GFR (Cockcroft-Gault) 18.1 24.6 Glucose Level 128 mg/dL (70-99) 162 mg/dL (70-99) Calcium Level 9.4 mg/dL (8.5-10.1) 9.2 mg/dL (8.5-10.1) Magnesium Level 2.7 mg/dL (1.8-2.4) Triglycerides Level 71 mg/dL (0-150) Cholesterol Level 231 mg/dL (0-200) LDL Cholesterol, Calculated 134 mg/dL (0-100) VLDL Cholesterol, Calculated 14 mg/dL (0-40) Non-HDL Cholesterol Calculated 148 mg/dL (0-129) HDL Cholesterol 83 mg/dL (40-60) Cholesterol/HDL Ratio 2.8 Thyroid Stimulating Hormone (TSH) 1.204 uIU/mL (0.358-3.74) Laboratory Tests Test 12/04/17 03:40 White Blood Count 12.6 x10^3/uL (4.0-11.0) Red Blood Count 2.61 x10^6/uL (3.50-5.40) Hemoglobin 8.2 g/dL (12.0-15.5) Hematocrit 24.0 % (36.0-47.0) Mean Corpuscular Volume 92 fL (79-100) Mean Corpuscular Hemoglobin 31 pg (25-35) Mean Corpuscular Hemoglobin Concent 34 g/dL (31-37) Red Cell Distribution Width 13.6 % (11.5-14.5) Platelet Count 311 x10^3/uL (140-400) Neutrophils (%) (Auto) 92 % (31-73) Lymphocytes (%) (Auto) 5 % (24-48) Monocytes (%) (Auto) 3 % (0-9) Eosinophils (%) (Auto) 0 % (0-3) Basophils (%) (Auto) 0 % (0-3) Neutrophils # (Auto) 11.6 x10^3uL (1.8-7.7) Lymphocytes # (Auto) 0.6 x10^3/uL (1.0-4.8) Monocytes # (Auto) 0.4 x10^3/uL (0.0-1.1) Eosinophils # (Auto) 0.0 x10^3/uL (0.0-0.7) Basophils # (Auto) 0.0 x10^3/uL (0.0-0.2) Sodium Level 140 mmol/L (136-145) Potassium Level 5.1 mmol/L (3.5-5.1) Chloride Level 106 mmol/L (98-107) Carbon Dioxide Level 22 mmol/L (21-32) Anion Gap 12 (6-14) Blood Urea Nitrogen 45 mg/dL (7-20) Creatinine 2.3 mg/dL (0.6-1.0) Estimated GFR (Cockcroft-Gault) 24.6 Glucose Level 162 mg/dL (70-99) Calcium Level 9.2 mg/dL (8.5-10.1) Microbiology 12/02/17 Blood Culture - Preliminary, Resulted NO GROWTH AFTER 1 DAY Medications Current Medications Alprazolam (Xanax) 0.5 mg 1X ONCE PO Last administered on 12/02/17at 21:07; Start 12/02/17 at 21:00; Stop 12/02/17 at 21:01; Status DC Clonidine HCl (Catapres) 0.1 mg 1X ONCE PO Last administered on 12/02/17at 21: 07; Start 12/02/17 at 21:00; Stop 12/02/17 at 21:01; Status DC Sodium Chloride 1,000 ml @ 1,000 mls/hr 1X ONCE IV Last administered on at 23:31; Start 12/02/17 at 23:00; Stop 12/02/17 at 23:59; Status DC Ondansetron HCl (Zofran) 4 mg PRN Q8HRS PRN IV NAUSEA/VOMITING 1ST CHOICE; Start 12/02/17 at 23:15; Stop 12/03/17 at 23:14; Status DC Fentanyl Citrate (Fentanyl 2ml Vial) 50 mcg PRN Q2HR PRN IV SEVERE PAIN; Start 12/02/17 at 23:15; Stop 12/03/17 at 23:14; Status DC Sodium Chloride 1,000 ml @ 75 mls/hr [id number] IV Last administered on at 11:36; Start 12/02/17 at 23:30; Stop 12/03/17 at 23:29; Status DC Dexamethasone Sodium Phosphate (Decadron) 4 mg Q6HRS IV Last administered on at 06:02; Start 12/03/17 at 00:00 Info (Do NOT chart on this placeholder) 1 each PRN DAILY PRN [facility] UNABLE TO RESPOND; Start 12/03/17 at 03:00; Stop 12/03/17 at 13:32; Status DC Alprazolam (Xanax) 0.5 mg PRN TID PRN PO ANXIETY / AGITATION Last administered on 12/04/17at 00:23; Start 12/03/17 at 09:15 Clonidine HCl (Catapres) 0.1 mg DAILY PO Last administered on 12/03/17at 10:06; Start 12/03/17 at 10:00; Stop 12/03/17 at 14:09; Status DC Docusate Sodium (Colace) 100 mg DAILY PO Last administered on 12/03/17at 10:06; Start 12/03/17 at 10:00 Donepezil HCl (Aricept) 5 mg DAILY PO Last administered on 12/04/17at 09:12; Start 12/03/17 at 10:00 Memantine (Namenda) 10 mg DAILY PO Last administered on 12/04/17at 09:11; Start 12/03/17 at 11:30 Quetiapine Fumarate (SEROquel) 50 mg QHS PO Last administered on 12/03/17at 22: 41; Start 12/03/17 at 21:00 Acetaminophen (Tylenol) 650 mg PRN Q6HRS PRN PO FEVER; Start 12/03/17 at 09:15 Ondansetron HCl (Zofran) 4 mg PRN Q6HRS PRN IV NAUSEA/VOMITING; Start 12/03/17 at 09:15 Morphine Sulfate (Morphine Sulfate) 2 mg PRN Q2HR PRN IV MODERATE TO SEVERE PAIN; Start 12/03/17 at 09:15 Tramadol HCl (Ultram) 50 mg PRN Q6HRS PRN PO MILD TO MODERATE PAIN; Start 12/03 at 09:15 Docusate Sodium (Colace) 100 mg PRN DAILY PRN PO CONSTIPATION; Start 12/03/17 at 09:15 Famotidine (Pepcid) 20 mg QHS PO Last administered on 12/03/17at 22:40; Start at 21:00 Amlodipine Besylate (Norvasc) 5 mg DAILY PO Last administered on 12/03/17at 11: 35; Start 12/03/17 at 11:30; Stop 12/04/17 at 07:56; Status DC Alprazolam (Xanax) 0.25 mg 1X ONCE PO Last administered on 12/03/17at 11:35; Start 12/03/17 at 11:30; Stop 12/03/17 at 11:31; Status DC Alprazolam (Xanax) 0.25 mg 1X ONCE PO ; Start 12/03/17 at 13:30; Stop 12/03/17 at 13:31; Status DC Influenza Virus Vaccine ([facility] T[facility] 1213-1611 Syringe) 0.5 ml ONCE ONCE VAX IM Last administered on 12/04/17at 00:40; Start 12/03/17 at 13:45; Stop at 13:46; Status DC Clonidine HCl (Catapres) 0.1 mg BID PO Last administered on 12/04/17at 09:12; Start 12/03/17 at 21:00 Labetalol HCl (Normodyne Iv Push) 20 mg PRN Q2HR PRN IVP HYPERTENSION, SEE COMMENTS Last administered on 12/04/17at 04:47; Start 12/03/17 at 14:15 Diphenhydramine HCl (Benadryl) 25 mg 1X ONCE PO Last administered on at 00:24; Start 12/04/17 at 00:00; Stop 12/04/17 at 00:03; Status DC Amlodipine Besylate (Norvasc) 10 mg DAILY PO Last administered on 12/04/17at 09: 13; Start 12/04/17 at 09:00 Active Scripts Active Reported Colace (Docusate Sodium) 100 Mg Capsule 100 Mg PO Clonidine Hcl 0.1 Mg Tablet 0.1 Mg PO DAILY Namenda (Memantine Hcl) 10 Mg Tablet 10 Mg PO DAILY Aricept (Donepezil Hcl) 5 Mg Tablet 5 Mg PO HS Zolpidem Tartrate 5 Mg Tablet 5 Mg PO PRN QHS PRN Alprazolam 0.5 Mg Tablet 0.5 Mg PO TID PRN Lisinopril 40 Mg Tablet 40 Mg PO DAILY Aspir-Low (Aspirin) 81 Mg Tablet. 81 Mg PO Seroquel (Quetiapine Fumarate) 50 Mg Tablet 50 Mg PO HS One-A-Day Proactive 65 Plus Tb (Multivit,Calc,Mins/Folic Acid) 200 Mcg Tablet 200 Mcg PO Vitals/I & O Vital Sign - Last 24 Hours 12/03/17 12/03/17 12/03/17 12/03/17 11:00 11:35 12:00 12:00 Temp 98.1 98.1 Pulse 80 74 72 Resp 16 14 B/P (MAP) 183/99 (127) 181/85 167/71 (103) Pulse Ox 100 100 O2 Delivery Room Air Room Air Room Air 12/03/17 12/03/17 12/03/17 12/03/17 13:00 14:00 15:00 16:00 Temp 98.1 98.1 Pulse 68 74 86 90 Resp 19 13 20 18 B/P (MAP) 172/76 (108) 173/92 (119) 162/85 (110) 174/75 (108) Pulse Ox 100 100 100 100 O2 Delivery Room Air Room Air Room Air Room Air 12/03/17 12/03/17 12/03/17 12/03/17 16:00 19:35 20:00 22:41 Temp 98.1 98.1 Pulse 94 94 Resp 16 B/P (MAP) 153/67 (95) 153/67 Pulse Ox 97 O2 Delivery Room Air Room Air Room Air 12/03/17 12/04/17 12/04/17 12/04/17 23:00 00:23 03:30 04:47 Temp 97.6 98.6 97.6 98.6 Pulse 101 101 67 67 Resp 18 14 B/P (MAP) 198/95 (129) 198/95 196/77 (116) 196/77 Pulse Ox 97 97 O2 Delivery Room Air Room Air 12/04/17 12/04/17 09:12 09:13 Pulse 72 67 B/P (MAP) 193/88 196/77 Intake and Output 12/03/17 12/03/17 12/04/17 15:00 23:00 07:00 Intake Total 240 ml 1358.41 ml 240 ml Output Total 500 ml 500 ml Balance -260 ml 858.41 ml 240 ml FULBRIGHT,SHANTA W MD Dec 04, 2017 10:27
--- NOTE | 2017-12-04 10:38 | PDOC ---
Renal-Progress Notes Subjective Notes Notes NONE History of Present Illness Hx of present illness NO CHANGE Vitals Vitals Vital Signs Date Time Temp Pulse Resp B/P (MAP) Pulse Ox O2 Delivery O2 Flow Rate FiO2 12/04/17 09:13 67 196/77 12/04/17 03:30 98.6 14 97 Room Air 98.6 Weight Weight [ ] I.O. Intake and Output Intake and Output 12/04/17 07:00 Intake Total 1838.41 ml Output Total 1000 ml Balance 838.41 ml Intake Oral 840 ml IV Total 998.41 ml Output Urine Total 1000 ml # Voids 5 # Bowel Movements 4 Labs Labs Laboratory Tests Test 12/04/17 03:40 White Blood Count 12.6 x10^3/uL (4.0-11.0) Red Blood Count 2.61 x10^6/uL (3.50-5.40) Hemoglobin 8.2 g/dL (12.0-15.5) Hematocrit 24.0 % (36.0-47.0) Mean Corpuscular Volume 92 fL (79-100) Mean Corpuscular Hemoglobin 31 pg (25-35) Mean Corpuscular Hemoglobin Concent 34 g/dL (31-37) Red Cell Distribution Width 13.6 % (11.5-14.5) Platelet Count 311 x10^3/uL (140-400) Neutrophils (%) (Auto) 92 % (31-73) Lymphocytes (%) (Auto) 5 % (24-48) Monocytes (%) (Auto) 3 % (0-9) Eosinophils (%) (Auto) 0 % (0-3) Basophils (%) (Auto) 0 % (0-3) Neutrophils # (Auto) 11.6 x10^3uL (1.8-7.7) Lymphocytes # (Auto) 0.6 x10^3/uL (1.0-4.8) Monocytes # (Auto) 0.4 x10^3/uL (0.0-1.1) Eosinophils # (Auto) 0.0 x10^3/uL (0.0-0.7) Basophils # (Auto) 0.0 x10^3/uL (0.0-0.2) Sodium Level 140 mmol/L (136-145) Potassium Level 5.1 mmol/L (3.5-5.1) Chloride Level 106 mmol/L (98-107) Carbon Dioxide Level 22 mmol/L (21-32) Anion Gap 12 (6-14) Blood Urea Nitrogen 45 mg/dL (7-20) Creatinine 2.3 mg/dL (0.6-1.0) Estimated GFR (Cockcroft-Gault) 24.6 Glucose Level 162 mg/dL (70-99) Calcium Level 9.2 mg/dL (8.5-10.1) Micro Micro Microbiology 12/02/17 Blood Culture - Preliminary, Resulted NO GROWTH AFTER 1 DAY Review of Systems Constitutional: yes: other (CONFUSED) Physical Exam General Appearance: no apparent distress Skin: warm Respiratory: bilateral CTA Heart: S1S2 Abdomen: soft, bowel sounds present Genitourinary: bladder flat Neurology: alert, confused Assessment Assessment IMP ANGIE-BETTER WITH CR DOWN TO 2.3 DEHYDRATION LEFT TEMP/PARIETAL MASS HTN-LABILE DEMENTIA PLAN INCREASE CLONIDINE CONSERVATIVE CARE ENC PO HOSPICE PLANS WILL FOLLOW REGINE FARRIS MD Dec 04, 2017 10:38
[2017-12-04] MEDS: cloNIDine HCL 0.2 MG TABLET PO SCH (19:36)
[2017-12-04] MEDS: QUEtiapine 25 MG TABLET. PO SCH (19:36)
[2017-12-04] MEDS: FAMOTIDINE 20 MG TABLET. PO SCH (19:36)
[2017-12-05] MEDS: DEXAMETHASONE SOD PHOS 4 MG/ML VIAL IV SCH ×3 (00:50→06:00)
[2017-12-05 03:00] VITALS: BP 138/60
[2017-12-05 06:09] LABS: CALCIUM 9.5 mg/dL (8.5-10.1); CREATININE 1.9 mg/dL (0.6-1.0); GFR 30.6
[2017-12-05 06:10] LABS: POTASSIUM 5.2 mmol/L (3.5-5.1)
[2017-12-05] MEDS: DONEPEZIL HCL 5 MG TABLET. PO SCH (09:00)
[2017-12-05] MEDS: MEMANTINE 10 MG TABLET. PO SCH (09:00)
[2017-12-05] MEDS: DOCUSATE SODIUM 100 MG CAPSULE. PO SCH (09:00)
[2017-12-05] MEDS: cloNIDine HCL 0.2 MG TABLET PO SCH (09:00)
[2017-12-05] MEDS: amLODIPine BESYLATE 5 MG TABLET PO SCH (09:00)
[2017-12-05] MEDS ORDERED: FAMO20TA5 PO (12:12)
[2017-12-05] MEDS ORDERED: CLON0.2T10 PO (12:12)
[2017-12-05] MEDS ORDERED: DEXA4TAB63 PO (12:12)
[2017-12-05] MEDS ORDERED: SODIUM POLYSTYRENE SULFONATE 15 GM/60 ML ORAL.SUSP. PO ONE (12:30)
[2017-12-05] MEDS ORDERED: DEXAMETHASONE 4 MG TABLET PO SCH (13:00)
--- NOTE | 2017-12-05 13:37 | PDOC ---
Renal-Progress Notes Subjective Notes Notes NONE History of Present Illness Hx of present illness STABLE Vitals Vitals Vital Signs Date Time Temp Pulse Resp B/P (MAP) Pulse Ox O2 Delivery O2 Flow Rate FiO2 12/05/17 08:20 Room Air 12/05/17 03:00 97.4 70 18 138/60 (86) 98 97.4 Weight Weight [ ] I.O. Intake and Output Intake and Output 12/05/17 07:00 Intake Total 50 ml Balance 50 ml Intake Oral 50 ml # Voids 8 # Bowel Movements 2 Labs Labs Laboratory Tests Test 12/05/17 04:30 Sodium Level 141 mmol/L (136-145) Potassium Level 5.2 mmol/L (3.5-5.1) Chloride Level 107 mmol/L (98-107) Carbon Dioxide Level 22 mmol/L (21-32) Anion Gap 12 (6-14) Blood Urea Nitrogen 39 mg/dL (7-20) Creatinine 1.9 mg/dL (0.6-1.0) Estimated GFR (Cockcroft-Gault) 30.6 Glucose Level 125 mg/dL (70-99) Calcium Level 9.5 mg/dL (8.5-10.1) Micro Micro Microbiology 12/02/17 Blood Culture - Preliminary, Resulted NO GROWTH AFTER 2 DAYS Review of Systems Constitutional: yes: other (CONFUSED) Physical Exam General Appearance: no apparent distress Skin: warm Respiratory: bilateral CTA Heart: S1S2 Abdomen: soft, bowel sounds present Genitourinary: bladder flat Neurology: alert, confused Assessment Assessment IMP ANGIE-BETTER WITH CR DOWN TO 1.9 DEHYDRATION LEFT TEMP/PARIETAL MASS [id number] DEMENTIA PLAN ICONSERVATIVE CARE ENC PO ? HOSPICE PLANS WILL FOLLOW REGINE FARRIS MD Dec 05, 2017 13:37
--- NOTE | 2017-12-05 14:47 | PDOC3 ---
Discharge Summary [facility] Date of Admission: Dec 02, 2017 Discharge Date: Dec 05, 2017 Admitting Diagnosis AMS more confusion 2/2 brain mass/malignancy likely baseline severe dementia ANGIE, vasomotor htn urgency stable copd CONSULTS neurosx renal Brief Hospital Course Patient is a 82 year old female who presents with changes in behavior at home x1 week. pt has severe dementia, lives at home with daughter. pt cannot tell me any history. as per her daughter in law, dr Ulices's , pt she has had increasingly bizarre behavior and altered mental status. They were worried that she might have a UTI. They did bring her to the emergency department and states that she has no significant past medical history aside from hypertension and dementia. She is eating and drinking normally and they deny nausea or vomiting. CT found a brain mass. Cr 3.6. pt cont very confused, combative sometimes, need 1 to 1. MRI done. neurosx consulted, PAT consulted, hospice planed. DNR. htn med increased, Cr better with ivf. dc home with home hospice. dc time 35min. General: Alert, Cooperative, No acute distress, moderate distress Heart: Regular rate, Normal S1, Normal S2 Lungs: Clear Abdomen: Normal bowel sounds, Soft, No tenderness Extremities: No clubbing, No cyanosis, No edema Skin: No breakdown, No significant lesion Disposition home hospice CONDITION AT DISCHARGE: Stable Scheduled Clonidine Hcl (Catapres), 0.2 MG PO BID Dexamethasone (Decadron), 4 MG PO QID Donepezil Hcl (Aricept), 5 MG PO HS, (Reported) Famotidine (Famotidine), 20 MG PO QHS Memantine Hcl (Namenda), 10 MG PO DAILY, (Reported) Quetiapine Fumarate (Seroquel), 50 MG PO HS, (Reported) Scheduled PRN Alprazolam (Alprazolam), 0.5 MG PO TID PRN for ANXIETY / AGITATION, (Reported) Zolpidem Tartrate (Zolpidem Tartrate), 5 MG PO PRN QHS PRN for INSOMNIA, ( Reported) Miscellaneous Medications Docusate Sodium (Colace), 100 MG PO, (Reported) Multivit,Calc,Mins/Folic Acid (One-A-Day Proactive 65 Plus Tb), 200 MCG PO, ( Reported) Discontinued Medications Aspirin (Aspir-Low), 81 MG PO, (Reported) Clonidine Hcl (Clonidine Hcl), 0.1 MG PO DAILY, (Reported) Lisinopril (Lisinopril), 40 MG PO DAILY, (Reported) JUAN CROWELL MD Dec 05, 2017 14:47
== END 2017-12-05 16:10 | disposition hospice, home (50) | DRG 70 ==
LOC: ER 20:11 → 1 WEST ICU 23:01 → 4 NORTH 12-03 19:35
PROVIDERS: ADMIT Family Medicine; ATTEND Family Medicine
DX: G93.89 Other specified disorders of brain (principal); N17.0 Acute kidney failure with tubular necrosis; G93.40 Encephalopathy, unspecified; I16.0 Hypertensive urgency; D64.9 Anemia, unspecified; E86.0 Dehydration; F02.80 Dementia in other diseases classified elsewhere, unspecified severity, without behavioral disturbance, psychotic disturbance, mood disturbance, and anxiety; Z79.899 Other long term (current) drug therapy; G47.00 Insomnia, unspecified; G30.9 Alzheimer's disease, unspecified; I11.0 Hypertensive heart disease with heart failure; I50.9 Heart failure, unspecified; J44.9 Chronic obstructive pulmonary disease, unspecified; Z66 Do not resuscitate; Z87.891 Personal history of nicotine dependence; Z90.710 Acquired absence of both cervix and uterus; F41.9 Anxiety disorder, unspecified
CPT/HCPCS: 36415; 70450; 70551; 71045; 76770; 80048; 80053; 80061; 81001; 82140; 82962; 83605; 83735; 83880; 84443; 85007; 85025; 85610; 85730; 87040; 87641; 90471; 90756; 93005; 93306; 96360; J1100; J3490; J7030; P9612; Q0163; 99285-25; Q2035